=== PATIENT | male | born 1945 | race Caucasian/White ===

== ENCOUNTER → 2016-11-06 | Outpatient (CLI) | payer OTHER | LOC: FIMAGING 14:46 | PROVIDERS: ATTEND Family Medicine | DX: R91.1 Solitary pulmonary nodule (principal); I25.10 Atherosclerotic heart disease of native coronary artery without angina pectoris; K86.89 Other specified diseases of pancreas; N28.1 Cyst of kidney, acquired ==

== ENCOUNTER → 2017-05-23 | Outpatient (CLI) | payer OTHER | LOC: FIMAGING 12:43 | PROVIDERS: ATTEND Family Medicine | DX: R91.8 Other nonspecific abnormal finding of lung field (principal) ==

== ENCOUNTER 2018-01-14 19:24 | Inpatient (IN) | payer OTHER ==
--- NOTE | 2018-01-14 19:34 | EDPHY ---
HPI/HX/ROS/PE/MDM Narrative: CHIEF COMPLAINT: Syncope versus seizure HISTORY OF PRESENT ILLNESS: This patient is a 73 year old male with history of bladder cancer, diabetes, hypertension, and hyperlipidemia arriving via EMS following a syncopal episode this evening. He was eating dinner at a [facility] restaurant and his noted him start to tremble, and then his head drooped and he fell to the side. He did not fall from his chair or strike his head. He remained unconscious for about 2- 3 minutes. The patient denies any chest pain, shortness of breath, palpitations , or nausea prior to this event. He states he felt as if he could not hear well , and then remembers waking to EMS. He denies any confusion upon waking, and states he currently feels fine. About 2-3 weeks ago, the patient was hiking with his near [facility] and had an episode of lightheadedness lasting about 2 minutes. His states he was stumbling and having difficulty with his legs at that time as well. He denies fainting. He denies head trauma. He denies any speech or word-finding difficulties. However, since that time he has felt spacey and had memory difficulties. His states he has been dragging his right leg. They have followed up with his primary care physician and the patient is scheduled for MRI. Today, he had difficulty writing down elements of a phone conversation he had with his daughter. He and his are concerned these symptoms may be related to a TIA. The patient takes daily low dose aspirin. No fever, chills, chest pain, shortness of breath, palpitations, vomiting, diarrhea, urinary complaints, headache, lightheadedness. REVIEW OF SYSTEMS: Aside from elements discussed in the HPI, a comprehensive 10-point review of systems was reviewed and is negative. PAST MEDICAL HISTORY: Diabetes mellitus type II (metformin). Hyperlipidemia ( Lipitor). Hypertension (Losartan). Takes Zoloft. History of bladder cancer ( current immunotherapy). SOCIAL HISTORY: . at bedside. No alcohol use. PCP Dr. Pimentel. VITAL SIGNS: Reviewed by me GENERAL: Well-developed, well-nourished, no respiratory distress. Slightly slow to answer some questions and follow commands. HEENT: Atraumatic. Eyes: No icterus, no injection. EOMI, ELIAS. Mouth: moist mucous membranes. No erythema or lesions. Neck: supple with no adenopathy. LUNGS: Clear to auscultation bilaterally, no wheezes, rhonchi or rales. CARDIAC: Regular rate and rhythm, no rubs, murmurs or gallops. ABDOMEN: Soft, nontender, nondistended, bowel sounds normal. BACK: No CVA tenderness. EXTREMITIES: No trauma. No edema. Range of motion is normal throughout. NEURO: Alert and oriented x3, slow to follow commands. Upward pronatory drift in right arm. Right leg drift. Normal finger to nose and heel to juárez. SKIN: Pale. Warm and dry, no rash. PSYCHIATRIC: Normal mentation, no agitation. Portions of this note were transcribed by a medical office representative. I personally performed a history, physical exam, medical decision making, and confirmed accuracy of information the transcribed note. ED Course: 19:25 Met EMS at bedside. 73 y/o male presents following a syncopal episode earlier this evening. He is alert and oriented but slow to respond to commands. Some drift in right upper and lower extremities on exam. Plan for EKG, chest x-ray, CT head, labs including CBC, chemistries. 12-LEAD EKG: Please see the full report in [facility]. My interpretation: Sinus rhythm, RBBB. 20:[address] Cruz, radiologist. CT head shows large subdural hemorrhage vs fluid collection suspicious for dural metastasis, causing 11 mm of subfalcine rightward shift. Plan to consult with neurosurgery. 20:16 Reassessed patient. Discussed imaging results. 20:[address] Dailey, neurosurgeon. He accepts admission for subdural hemorrhage with shift, possible seizure vs syncope. 20:[address] Dailey, neurosurgeon. He will admit the patient to stepdown. Plan for additional laboratory studies including type and screen. Plan to consult with hospitalist service regarding this patient. Patient's course discussed with Dr. Solomon Peck. Hospitalist service will consult and follow. At the patient and 's request, I also discussed the presentation and findings with their daughter who is a primary care physician in [place]. MDM: Differential diagnosis of the patient's presenting complaint was considered including but not limited to vasovagal syncope, arrhythmia, intracranial mass, intracranial hemorrhage, CVA, TIA, dehydration. - Data Points Imaging Results: Imaging Impressions Chest X-Ray 01/14/18 19:43 Impression: 1. Mild bronchitis. 2. No focal pneumonia or pulmonary edema. Head CT 01/14/18 19:43 Impression: 1. Left frontoparietal large complex multiseptated thick wall subdural fluid collection suspicious for dural metastasis versus less likely subacute subdural hematoma. 2. Rightward subfalcine herniation, rightward midline shift 11 mm due to the large left frontoparietal complex subdural fluid collection, which measures up to 2.5 cm in thickness. 3. Recommend STAT Neurosurgery consult. Findings and recommendations discussed with Emergency Department Physician Backup Engineer, Natalee Mueller M.D., at 2015 hours, on January 14, 2018. Final report concurs with initial preliminary interpretation. Imaging: Discussed imaging studies w/ on call Radiologist, I viewed and interpreted images myself Laboratory Results: Laboratory Results 01/14/18 19:37 01/14/18 19:37 01/14/18 01/14/18 01/14/18 20:02 19:37 19:37 WBC 5.96 10^3/uL 10^3/uL (3.80-9.50) RBC 4.13 10^6/uL L 10^6/uL (4.40-6.38) Hgb 12.5 g/dL L g/dL (13.7-17.5) Hct 38.1 % L % (40.0-51.0) MCV 92.3 fL fL (81.5-99.8) MCH 30.3 pg pg (27.9-34.1) MCHC 32.8 g/dL g/dL (32.4-36.7) RDW 14.8 % % (11.5-15.2) Plt Count 224 10^3/uL 10^3/uL (150-400) MPV 11.1 fL fL (8.7-11.7) Neut % (Auto) 56.6 % % (39.3-74.2) Lymph % (Auto) 34.2 % % (15.0-45.0) [place] % (Auto) 6.2 % % (4.5-13.0) Eos % (Auto) 2.7 % % (0.6-7.6) Baso % (Auto) 0.3 % % (0.3-1.7) Nucleat RBC Rel Count 0.0 % % (0.0-0.2) Absolute Neuts (auto) 3.37 10^3/uL 10^3/uL (1.70-6.50) Absolute Lymphs (auto) 2.04 10^3/uL 10^3/uL (1.00-3.00) Absolute Monos (auto) 0.37 10^3/uL 10^3/uL (0.30-0.80) Absolute Eos (auto) 0.16 10^3/uL 10^3/uL (0.03-0.40) Absolute Basos (auto) 0.02 10^3/uL 10^3/uL (0.02-0.10) Absolute Nucleated RBC 0.00 10^3/uL 10^3/uL (0-0.01) Immature Gran % 0.0 % % (0.0-1.1) Immature Gran # 0.00 10^3/uL 10^3/uL (0.00-0.10) Sodium 143 mEq/L mEq/L (135-145) Potassium 4.7 mEq/L mEq/L (3.3-5.0) Chloride 106 mEq/L mEq/L (97-110) Carbon Dioxide 21 mEq/l L mEq/l (22-31) Anion Gap 16 mEq/L mEq/L (8-16) BUN 35 mg/dL H mg/dL (7-23) Creatinine 1.3 mg/dL mg/dL (0.7-1.3) Estimated GFR 54 Glucose 131 mg/dL H mg/dL (70-100) Calcium 10.0 mg/dL mg/dL (8.5-10.4) POC Troponin I 0.00 ng/mL ng/mL (0.00-0.08) Point of Care Test Results: Chemistry 01/14/18 20:02 POC Troponin I 0.00 ng/mL ng/mL (0.00-0.08) General Initial Vital Signs: Initial Vital Signs Temperature (C) 36.4 C 01/14/18 19:25 Heart Rate 69 01/14/18 19:25 Respiratory Rate 16 01/14/18 19:25 Blood Pressure 147/72 H 01/14/18 19:25 O2 Sat (%) 94 01/14/18 19:25 O2 Delivery Mode Room Air Allergies/Adverse Reactions: Penicillins Allergy (Verified 01/14/18 19:36) Home Medications: Medication Instructions Recorded Aspirin [Aspirin 81mg (*)] 81 mg PO DAILY@1200 01/14/18 Atorvastatin Calcium [Lipitor 20 20 mg PO HS 01/14/18 mg (*)] Ferrous Sulfate [Iron] 325 mg PO DAILY@19001/14/18 Herbals/Supplements -Info Only 1 ea PO DAILY 01/14/18 Insulin Detemir [Levemir Flextouch] 30 units SQ DAILY@189901/14/18 Losartan Potassium [Losartan 100 mg PO DAILY@1200 01/14/18 Potassium] Metformin HCl [Metformin 1000 mg] 1,000 mg PO BIDMEAL 01/14/18 Vitamin B Complex [Vitamin B 2 each PO DAILY 01/14/18 Complex (OTC)] Zolpidem Tartrate [Zolpidem 5 mg PO HS PRN 01/14/18 Tartrate] Departure - Departure Disposition: [facility] Inpatient Acute Clinical Impression: Subdural hemorrhage Syncope Qualifiers: Syncope type: unspecified Qualified Code(s): R55 - Syncope and collapse Condition: Fair Report Scribed for: Natalee Mueller Report Scribed by: Margaret Rocha Date of Report: 01/14/18 Time of Report: 20:16
--- NOTE | 2018-01-14 19:36 | CPEKG ---
Heart Rate: 66 RR Interval: 909 P-R Interval: 160 QRSD Interval: 132 QT Interval: 408 QTC Interval: 428 P [place]: 56 QRS [place]: 45 T Wave [place]: 30 EKG Severity - ABNORMAL ECG - EKG Impression: SINUS RHYTHM EKG Impression: RIGHT BUNDLE BRANCH BLOCK Electronically Signed By: Natalee Mueller 14-Jan-2018 21:37:47
[2018-01-14 20:05] LABS: PLATELET COUNT 224 10^3/uL (150-400)
--- NOTE | 2018-01-14 20:47 | PDCONSULT ---
Meter Supervisor Note: Imaging reviewed. Full consult to follow in AM. 73M with left chronic subdural with some shift and clumsiness of the right hand. No sign of acute blood. will admit to SDU for observation overnight will need crani for evacuation tomorrow NPO after midnight may need to consider embolization of MMA given extensive inflammatory membranes medicine consult for managment of other issues Hugh Dailey MD
[2018-01-14] MEDS ORDERED: POLYETHYLENE GLYCOL 3350 17 GM PKT PO PRN (20:55)
[2018-01-14] MEDS ORDERED: LACTULOSE 20 GM/30 ML UDCUP PO PRN (20:55)
[2018-01-14] MEDS ORDERED: BISACODYL 10 MG SUPP PR PRN (20:55)
[2018-01-14] MEDS ORDERED: MAGNESIUM HYDROXIDE 30 ML UDCUP PO PRN (20:55)
[2018-01-14] MEDS ORDERED: ONDANSETRON DISINTEGRATING 4 MG TAB PO PRN (20:55)
[2018-01-14] MEDS ORDERED: ACETAMINOPHEN 650 MG SUPP PR PRN (20:55)
[2018-01-14] MEDS ORDERED: ONDANSETRON 4 MG/2 ML VIAL IVP PRN (20:55)
[2018-01-14] MEDS ORDERED: NS 1,000 ML IV SCH (21:00)
[2018-01-14] MEDS ORDERED: D50W 25 GM/50 ML SYR IVP PRN (22:20)
[2018-01-14] MEDS: levETIRAcetam 750 MG in NS (SYRINGE) 50 ML IV SCH (22:29)
[2018-01-14] MEDS: SENNOSIDES/DOCUSATE SODIUM TAB PO SCH (22:30)
--- NOTE | 2018-01-14 22:57 | PDHOSCONS ---
History and Physical - Chief Complaint SDH - History of Present Illness 73 yo M w/ HTN, DM, and bladder CA p/w vague complaints of R-sided weakness over the last few weeks. Patient also describes some difficulty writing with his R hand. He denies fall or head trauma any time in the recent past. CT in the ED revealed left frontoparietal subdural fluid collection. Patient is being admitted for neurosurgical management of this. Neurosurgery service requested hospital medicine assistance with medical management. Patient has diabetes and has good control with metformin and insulin detemir 30 u qHS. He takes losartan for blood pressure even though he states this is mostly for his diabetes. History Information - Allergies/Home Medication List Allergies/Adverse Reactions: Penicillins Allergy (Verified 01/14/18 19:36) Home Medications: Aspirin [Aspirin 81mg (*)] 81 mg PO DAILY@1200 01/14/18 [Last Taken Unknown] Atorvastatin Calcium [Lipitor 20 mg (*)] 20 mg PO HS 01/14/18 [Last Taken ] Ferrous Sulfate [Iron] 325 mg PO DAILY@1900 01/14/18 [Last Taken 01/13/18] Herbals/Supplements -Info Only 1 ea PO DAILY 01/14/18 [Last Taken Unknown] Insulin Detemir [Levemir Flextouch] 30 units SQ DAILY@1900 01/14/18 [Last Taken 01/13/18] Losartan Potassium [Losartan Potassium] 100 mg PO DAILY@1200 01/14/18 [Last Taken 01/14/18] Metformin HCl [Metformin 1000 mg] 1,000 mg PO BIDMEAL 01/14/18 [Last Taken 01/14 08:00] Vitamin B Complex [Vitamin B Complex (OTC)] 2 each PO DAILY 01/14/18 [Last Taken 01/14/18 08:00] Zolpidem Tartrate [Zolpidem Tartrate] 5 mg PO HS PRN 01/14/18 [Last Taken ] I have personally reviewed and updated: family history, medical history - Past Medical History cancer (Bladder), diabetes type 2, hypertension - Surgical History Additional surgical history: Several bladder tumor removal procedures - Family History Positive for: cancer (Breast cancer in mother) - Social History Smoking Status: Former smoker Review of Systems Review of Systems: ROS: 10pt was reviewed & negative except for what was stated in HPI & below Physical Exam Physical Exam: Temp Pulse Resp BP Pulse Ox 36.4 C 72 16 119/69 94 01/14/18 19:25 01/14/18 21:15 01/14/18 21:15 01/14/18 21:15 01/14/18 21:15 Constitutional: no apparent distress, not in pain Eyes: PERRL, EOMI Ears, Nose, Mouth, Throat: moist mucous membranes, no oral mucosal ulcers Cardiovascular: regular rate and rhythym, no murmur, rub, or gallop Respiratory: no respiratory distress, no rales or rhonchi Gastrointestinal: normoactive bowel sounds, soft, non-tender abdomen Skin: warm, normal color Musculoskeletal: full muscle strength, no muscle tenderness Neurologic: AAOx3, sensation intact bilaterally, CN II-XII Intact, No weakness, No numbness, No facial droop Psychiatric: interacting appropriately, not anxious Lab Data & Imaging Review 01/14/18 19:37 01/14/18 19:37 WBC 5.96 10^3/uL (3.80-9.50) 01/14/18 19:37 RBC 4.13 10^6/uL (4.40-6.38) L 01/14/18 19:37 Hgb 12.5 g/dL (13.7-17.5) L 01/14/18 19:37 Hct 38.1 % (40.0-51.0) L 01/14/18 19:37 MCV 92.3 fL (81.5-99.8) 01/14/18 19:37 MCH 30.3 pg (27.9-34.1) 01/14/18 19:37 MCHC 32.8 g/dL (32.4-36.7) 01/14/18 19:37 RDW 14.8 % (11.5-15.2) 01/14/18 19:37 Plt Count 224 10^3/uL (150-400) 01/14/18 19:37 MPV 11.1 fL (8.7-11.7) 01/14/18 19:37 Neut % (Auto) 56.6 % (39.3-74.2) 01/14/18 19:37 Lymph % (Auto) 34.2 % (15.0-45.0) 01/14/18 19:37 Ritchie % (Auto) 6.2 % (4.5-13.0) 01/14/18 19:37 Eos % (Auto) 2.7 % (0.6-7.6) 01/14/18 19:37 Baso % (Auto) 0.3 % (0.3-1.7) 01/14/18 19:37 Nucleat RBC Rel Count 0.0 % (0.0-0.2) 01/14/18 19:37 Absolute Neuts (auto) 3.37 10^3/uL (1.70-6.50) 01/14/18 19:37 Absolute Lymphs (auto) 2.04 10^3/uL (1.00-3.00) 01/14/18 19:37 Absolute Monos (auto) 0.37 10^3/uL (0.30-0.80) 01/14/18 19:37 Absolute Eos (auto) 0.16 10^3/uL (0.03-0.40) 01/14/18 19:37 Absolute Basos (auto) 0.02 10^3/uL (0.02-0.10) 01/14/18 19:37 Absolute Nucleated RBC 0.00 10^3/uL (0-0.01) 01/14/18 19:37 Immature Gran % 0.0 % (0.0-1.1) 01/14/18 19:37 Immature Gran # 0.00 10^3/uL (0.00-0.10) 01/14/18 19:37 Sodium 143 mEq/L (135-145) 01/14/18 19:37 Potassium 4.7 mEq/L (3.3-5.0) 01/14/18 19:37 Chloride 106 mEq/L (97-110) 01/14/18 19:37 Carbon Dioxide 21 mEq/l (22-31) L 01/14/18 19:37 Anion Gap 16 mEq/L (8-16) 01/14/18 19:37 BUN 35 mg/dL (7-23) H 01/14/18 19:37 Creatinine 1.3 mg/dL (0.7-1.3) 01/14/18 19:37 Estimated GFR 54 01/14/18 19:37 Glucose 131 mg/dL (70-100) H 01/14/18 19:37 POC Glucose 212 mg/dL (70-100) H 01/14/18 21:46 Calcium 10.0 mg/dL (8.5-10.4) 01/14/18 19:37 POC Troponin I 0.00 ng/mL (0.00-0.08) 01/14/18 20:02 Patient ABO/Rh O POSITIVE 01/14/18 20:30 Antibody Screen NEGATIVE 01/14/18 20:30 Imaging Review: Imaging Impressions Chest X-Ray 01/14/18 19:43 Impression: 1. Mild bronchitis. 2. No focal pneumonia or pulmonary edema. Head CT 01/14/18 19:43 Impression: 1. Left frontoparietal large complex multiseptated thick wall subdural fluid collection suspicious for dural metastasis versus less likely subacute subdural hematoma. 2. Rightward subfalcine herniation, rightward midline shift 11 mm due to the large left frontoparietal complex subdural fluid collection, which measures up to 2.5 cm in thickness. 3. Recommend STAT Neurosurgery consult. Findings and recommendations discussed with Emergency Department Physician Um Rn, Natalee Mueller M.D., at 2015 hours, on January 14, 2018. Final report concurs with initial preliminary interpretation. Visualized and Interpreted Chest x-ray results: Yes Chest X-Ray results: no infiltrate Visualized and Interpreted EKG results: Yes EKG Interpretation: Positive for: normal sinsus rhythm, other (RBBB) Assessment & Plan Assessment: 73 yo M w/ HTN and DM presents with subtle R sided weakness and syncope, found to have L SDH. Plan: 1. Subdural fluid collection - Left frontoparietal large complex multiseptated thick wall subdural fluid collection suspicious for dural metastasis versus less likely subacute subdural hematoma. - Management per neurosurgery primary - Would recommend Oncology consult to consider metastatic etiology noting coexisting bladder cancer - Maintain NPO 2. T2DM - Controlled at home with metformin + insulin detemir 30 u qHS. - Standard protocol SSI + 1/2 dose insulin glargine (15 u qHS) while NPO - ACHS BG checks, hypoglycemia orders in - Resume home dosing once regular diet resumes -Continue home ARB and statin 3. Bladder CA - Treated with various prior surgical procedures and now on BCG, per patient. Unclear if this is causative for suspected dural metastasis seen on admission CT. - Oncology consult Diet - NPO Code - Full Thank you for this consult, the hospital medicine service will follow along with you. Please do not hesitate to call with any questions.
[2018-01-15] MEDS: INSULIN GLARGINE 100 UNITS/ML UNIT SC SCH ×2 (00:14→21:38)
[2018-01-15 06:37] LABS: INR 1.03 (0.83-1.16); PROTIME(PATIENT) 13.7 SEC (12.0-15.0)
[2018-01-15] MEDS ORDERED: VANCOMYCIN HCL/NORMAL SALINE 250 ML IV ONE (07:06)
--- NOTE | 2018-01-15 08:37 | GHP ---
[f rep st] HISTORY AND PHYSICAL DATE OF ADMISSION: 01/14/2018 CHIEF COMPLAINT: Syncope and poor coordination. HISTORY OF PRESENT ILLNESS: The patient is a 73-year-old male patient, who has a past medical history significant for bladder cancer, diabetes, hypertension, and hyperlipidemia. He presented to the emergency room yesterday evening following a syncopal episode at a [employer] restaurant. Per report, the patient' s noted him trembling and then his head dropped, and he fell to the side. He did not fall from the chair or strike his head. He was unconscious for about 2-3 minutes. He was seen in the emergency room and underwent further evaluation. Imaging demonstrated a large, chronic, left-sided, subdural fluid collection, presumably a hematoma. The neurosurgery service was subsequently consulted and the patient was admitted to our service. On examination this morning, the patient is resting in bed. His is at the bedside. He states that he does not notice any weakness in his right hand unless he is trying to use it. For example, he is not able to clearly write out his signature. The patient and his have been seen by Dr. Dailey this morning and they understand patient's condition and the recommendation for surgery. REVIEW OF SYSTEMS: Please see above-mentioned in the HPI. No nausea, vomiting , numbness, or tingling. He has right-sided weakness. Denies any weakness in his face. He states that he feels he is thinking clearly. PAST MEDICAL HISTORY: Diabetes, type 2, hyperlipidemia, hypertension, history of bladder cancer. SOCIAL HISTORY: The patient is . His is at the bedside. No alcohol use. FAMILY HISTORY: The patient has a daughter, who is living. She is a physician. He states his mother passed of breast cancer and the patient's father of old age. He also had an uncle who at a young age, but the cause is unknown. PHYSICAL EXAMINATION: VITAL SIGNS: Blood pressure 133/56, heart rate 61, O2 saturation is 96% on 2 L of oxygen via nasal cannula, respirations 14. GENERAL: This is a well-developed, well-nourished male patient. He is in no acute distress. Cranial nerves 2 [id number] are grossly intact. The patient's eyes are PERRL. His extraocular movements are intact. His sclerae are anicteric. He has intact sensation over his face. His facial movements are symmetric without a facial droop noted. His speech is fluent. He has intact hearing to light finger scratch and conversation bilaterally. He has a symmetric shoulder shrug bilaterally. Motor examination of the bilateral upper extremities is 5/5 for deltoid, triceps, biceps, and hand social services manager. Motor examination of the bilateral lower extremities is 5/5 for hip flexion, flexion and extension at knee and plantar and dorsiflexion with the exception of dorsiflexion on the right side of approximately 4+ out of 5. He has intact sensation throughout the normal dermatomal distribution of his body. LABORATORY: 1. White blood cells 5.96, red blood cells 4.13, hemoglobin 12.5, hematocrit 38.1, RDW 14.8, platelet count 224. 2. Coagulation: PT is 13.7, INR is 1.03, APTT 22.6. 3. Chemistry: Sodium 143, potassium 4.7, chloride 106, carbon dioxide 21, anion gap 16, BUN 35, creatinine 1.3, GFR 54, glucose 131, calcium 10. Troponin 0.00. 4. Urinalysis: Ketones are trace, urobilinogen is 2, negative leukocyte esterase, 1-3 white blood cells. Urine glucose 1+. IMAGING STUDIES: Electrocardiogram: Sinus rhythm with a right bundle branch block. Chest x-ray: Mild bronchitis. No focal pneumonia or pulmonary edema. CT of the head, without contrast: Left frontoparietal, large complex, multiseptated, thick-wall, subdural fluid collection suspicious for dural metastasis versus less likely a subacute subdural hematoma. Rightward subfalcine herniation, rightward midline shift, 11 mm, due to the large, left, frontoparietal, complex, subdural fluid collection, which measures up to 2.5 cm in thickness. Recommend stat Neurosurgery consult. IMPRESSION: This is a 73-year-old male patient, status post syncopal event with a large, left-sided, subdural fluid collection. PLAN: I have seen and examined the patient this morning and Dr. Dailey has seen the patient this morning as well. Dr. 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 We have recommended surgical intervention. We have a left-sided craniotomy for evacuation of these blood products. Prior to surgery , we will have the patient undergo an MRI of the brain, with and without contrast, to evaluate this area better. I have discussed the risks and benefits of surgical intervention with the patient and his , and they have elected to move forward with surgery. Consent forms were left at the bedside to be completed. All questions were answered, and the patient and his were in agreement and understanding of the plan. I reviewed the plan in detail with Dr. Dailey. We appreciate the hospitalist service assisting in medical management for this patient. Vancomycin is on-call for the patient's procedure today and he will remain NPO. Please contact the neurosurgery service with any additional questions or concerns. NEUROSURGERY STAFF: I have seen and evaluated the patient and I agree with the above note by the PA. Hugh Dailey MD /[id number]/MODL MTDD
[2018-01-15] MEDS ORDERED: GADOBUTROL 10 ML VIAL IVP ONE (08:42)
[2018-01-15] MEDS: INSULIN LISPRO 100 UNIT/ML SC SCH ×3 (08:45→17:51)
[2018-01-15] MEDS: SENNOSIDES/DOCUSATE SODIUM TAB PO SCH ×2 (09:36→21:37)
[2018-01-15] MEDS: levETIRAcetam 750 MG in NS (SYRINGE) 50 ML IV SCH ×2 (09:37→22:55)
--- NOTE | 2018-01-15 09:49 | ASMTCMCOM ---
CM Note CM Note Notes: 73yr old male admitted for SDH. He has a Hx of Bladder CA, DM, HTN, HLD, and he was a smoker. Patient to have a L sided crani to evacuate hematoma and biopsy for possible mets. Patient lives with his . Therapies to eval for discharge needs. CM to follow. Date Signed: 01/15/2018 09:48 AM Electronically Signed By:Lenore Galvez LCSW
--- NOTE | 2018-01-15 10:57 | HOSPPROG ---
Hospitalist Progress Note Assessment/Plan: 73 yo M w/ HTN, DM, and bladder CA p/w vague complaints of R-sided weakness over the last few weeks. Patient also describes some difficulty writing with his R hand. He denies fall or head trauma any time in the recent past. CT in the ED revealed left frontoparietal subdural fluid collection. Patient is being admitted for neurosurgical management of this. Neurosurgery service requested hospital medicine assistance with medical management. # DM2, good control with metformin and insulin, on determir, 30 units qHS. * Hold metformin * insulin SS, til back on PO * transition back to determir when eating normally. # HTN: Good pressure control with losartan. * Monitor in hospital # Hx Bladder cancer in immunotherapy. MRI Pending prior to craniotomy. # DVT proph: SCD, add lovenox when OK per NS standpoint. Subjective: Pt new to me and chart reviewed. doing well, denies pain Objective: Vital Signs Temp Pulse Resp BP Pulse Ox 36.4 C 64 12 103/58 L 96 01/15/18 07:45 01/15/18 07:45 01/15/18 07:45 01/15/18 07:45 01/15/18 07:45 01/14/18 01/15/18 01/16/18 05:59 05:59 05:59 Intake Total 514 Output Total 350 Balance 164 PT 13.7 SEC (12.0-15.0) 01/15/18 05:30 INR 1.03 (0.83-1.16) 01/15/18 05:30 - Physical Exam Constitutional: no apparent distress, not in pain Eyes: PERRL, anicteric sclera Ears, Nose, Mouth, Throat: moist mucous membranes, hearing normal Cardiovascular: regular rate and rhythym Respiratory: no respiratory distress, clear to auscultation Gastrointestinal: normoactive bowel sounds Genitourinary: no bladder fullness Skin: warm Musculoskeletal: full muscle strength Neurologic: AAOx3 Psychiatric: interacting appropriately ICD10 Worksheet Patient Problems: Problems Problem Status Onset Subdural hemorrhage Acute Syncope Acute
--- NOTE | 2018-01-15 11:35 | PDANEPAE ---
ANE History of Present Illness here for crani for SDH ANE Past Medical History - Cardiovascular History Hx Hypertension: Yes Hx Arrhythmias: No Hx Chest Pain: No Hx Coronary Artery / Peripheral Vascular Disease: No Hx CHF / Valvular Disease: No Hx Palpitations: No - Pulmonary History Hx COPD: No Hx Asthma/Reactive Airway Disease: No Hx Recent Upper Respiratory Infection: No Hx Oxygen in Use at Home: No Hx Sleep Apnea: No Sleep Apnea Screening Result - Last Documented: Positive - Endocrine History Hx Diabetes: Yes Hypothyroid: No Hyperthyroid: No Obesity: no - Renal History Hx Renal Disorders: No - Liver History Hx Hepatic Disorders: No ANE Review of Systems Review of systems is: negative Review of Systems: - Exercise capacity Exercise capacity: >=4 METS ANE Patient History - Allergies Allergies/Adverse Reactions: Penicillins Allergy (Verified 01/14/18 19:36) - Home Medications Home medications: home medication list seen and reviewed Home Medications: Aspirin [Aspirin 81mg (*)] 81 mg PO DAILY@1200 01/14/18 [Last Taken Unknown] Atorvastatin Calcium [Lipitor 20 mg (*)] 20 mg PO HS 01/14/18 [Last Taken ] Ferrous Sulfate [Iron] 325 mg PO DAILY@1900 01/14/18 [Last Taken 01/13/18] Herbals/Supplements -Info Only 1 ea PO DAILY 01/14/18 [Last Taken Unknown] Insulin Detemir [Levemir Flextouch] 30 units SQ DAILY@1900 01/14/18 [Last Taken 01/13/18] Losartan Potassium [Losartan Potassium] 100 mg PO DAILY@1200 01/14/18 [Last Taken 01/14/18] Metformin HCl [Metformin 1000 mg] 1,000 mg PO BIDMEAL 01/14/18 [Last Taken 01/14 08:00] Vitamin B Complex [Vitamin B Complex (OTC)] 2 each PO DAILY 01/14/18 [Last Taken 01/14/18 08:00] Zolpidem Tartrate [Zolpidem Tartrate] 5 mg PO HS PRN 01/14/18 [Last Taken ] - NPO status NPO Status: no food or drink >8 hours NPO Since - Liquids (Date): 01/15/18 NPO Since - Liquids (Time): 00:00 NPO Since - Solids (Date): 01/15/18 NPO Since - Solids (Time): 00:00 - Smoking Hx Smoking Status: Former smoker ANE Labs/Vital Signs - Labs Result Diagrams: 01/14/18 19:37 01/14/18 19:37 - Vital Signs Vital Signs: reviewed preoperatively; see RN documention for details Blood Pressure: 107/58 Heart Rate: 56 Respiratory Rate: 14 O2 Sat (%): 97 Height: 175.26 cm Weight: 63.503 kg ANE Physical Exam - Airway Neck exam: FROM Mallampati Score: Class 1 - Pulmonary Pulmonary: no respiratory distress - Cardiovascular Cardiovascular: regular rate and rhythym - ASA Status ASA Status: II ANE Anesthesia Plan Anesthesia Plan: general endotracheal anesthesia
[2018-01-15] MEDS ORDERED: LR 1,000 ML IV ONE (11:37)
[2018-01-15] MEDS ORDERED: LABETALOL HCL 5 MG/ML 20 ML MDV IVP PRN (11:43)
[2018-01-15] MEDS ORDERED: LR 500 ML IV PRN (11:43)
[2018-01-15] MEDS ORDERED: fentaNYL 100 MCG/2 ML INJ IVP PRN (11:43)
[2018-01-15] MEDS ORDERED: DEXAMETHASONE 4 MG/ML VIAL IVP PRN (11:43)
[2018-01-15] MEDS ORDERED: NALOXONE HCL 0.4 MG/ML INJ IVP PRN (11:43)
[2018-01-15] MEDS ORDERED: ALBUTEROL 3 ML DEYVIAL IH PRN (11:43)
[2018-01-15] MEDS ORDERED: ONDANSETRON 4 MG/2 ML VIAL IVP PRN (11:43)
[2018-01-15] MEDS ORDERED: THROMBIN (BOVINE) 5,000 UNIT VIAL TP ONE (12:15)
[2018-01-15] MEDS ORDERED: BACITRACIN ZINC 14.2 GM OINTTUBE TP ONE (12:15)
[2018-01-15] MEDS ORDERED: LIDOCAINE 1% 300 MG/30 ML SDV ONE (12:15)
[2018-01-15] MEDS ORDERED: CHLORHEXIDINE GLUC HIBICLENS 118 ML BTL TP ONE (12:15)
[2018-01-15] MEDS ORDERED: MANNITOL 20% 100 GM/500 ML BAG IV ONE (12:15)
[2018-01-15] MEDS ORDERED: SURGIFLO MATRIX KIT WITH THROMBIN 8 ML TP ONE (12:15)
[2018-01-15] MEDS ORDERED: AVITENE POWDER 1 GM JAR TP ONE (12:16)
[2018-01-15] MEDS ORDERED: GENTAMICIN SULFATE 80 MG/2 ML VIAL ONE (12:16)
[2018-01-15] MEDS ORDERED: EPINEPHrine 1 MG/ML INJ ONE (12:16)
[2018-01-15] MEDS ORDERED: PROPOFOL 200 MG/20 ML VIAL ONE ×2 (12:37→12:45)
[2018-01-15] MEDS ORDERED: fentaNYL 100 MCG/2 ML INJ ONE ×2 (12:43→14:03)
[2018-01-15] MEDS ORDERED: HYDROCODONE/APAP 10/325 TAB PO PRN (13:27)
[2018-01-15] MEDS ORDERED: VANCOMYCIN 1.5 GM in D5W 250 ML IV SCH (13:30)
[2018-01-15] MEDS ORDERED: NS W/ 20 KCl/L 1,000 ML IV SCH (13:30)
[2018-01-15] MEDS ORDERED: ROCURONIUM 50 MG/5 ML VIAL ONE (13:35)
[2018-01-15] MEDS ORDERED: PHENYLEPHRINE HCL 100 MCG/ML SYR ONE (13:35)
[2018-01-15] MEDS ORDERED: ONDANSETRON 4 MG/2 ML VIAL ONE (13:35)
[2018-01-15] MEDS ORDERED: DEXAMETHASONE 4 MG/ML VIAL ONE (13:35)
[2018-01-15] MEDS ORDERED: NEOSTIGMINE METHYLSULFATE 3 MG/3 ML SYR ONE (14:00)
[2018-01-15] MEDS ORDERED: GLYCOPYRROLATE 0.2 MG/1 ML VIAL ONE ×2 (14:00)
--- NOTE | 2018-01-15 14:18 | POSTOPPROG ---
Post Op Note Date of Operation: 01/15/18 Surgeon: Hugh Dailey Dynamometer Tester: none Anesthesiologist: Mike Anesthesia: GET(General Endotracheal) Pre-op Diagnosis: left chronic subdural hematoma Post-op Diagnosis: same Indication: same Procedure: left frontal crani for evacuation of subdural hematoma Findings: chronic subdural hematoma with inflammatory membranes Inf/Abcess present in the surg proc area at time of surgery?: No EBL: Minimal Complications: none Drains: Fantasma Mac (subdural space)
[2018-01-15] MEDS: LOSARTAN POTASSIUM 50 MG TAB PO SCH (15:18)
--- NOTE | 2018-01-15 15:24 | GOP ---
[f rep st] OPERATIVE REPORT DATE OF OPERATION: 01/15/2018 SURGEON: Hugh Dailey MD NEUROSURGEON: Hugh Dailey MD FURRIER APPRENTICE: None. ANESTHESIA: General endotracheal. PREOPERATIVE DIAGNOSIS: Left chronic subdural hematoma measuring 2.5 cm in its greatest thickness with about 11 mm of [id number] midline shift. POSTOPERATIVE DIAGNOSIS: PROCEDURE PERFORMED: 1. Left frontal craniotomy. 2. Evacuation of chronic subdural hematoma. 3. Placement of subdural drain. FINDINGS: subdural hematoma (chronic) SPECIMENS: Subdural fluid for cytology and subdural membranes for permanent pathology. ESTIMATED BLOOD LOSS: 50 cc. INDICATIONS: The patient is a 73-year-old man who presents with some right- sided hand clumsiness and a bit of confusion. It is possible that he had a seizure yesterday. He was seen in the ER where a CT scan of the head was performed showing what appeared to be a large chronic subdural hematoma measuring 2.5 cm in greatest thickness with extensive inflammatory membranes within the cavity. There is 11 mm of [id number] shift. He was brought electively today for craniotomy for evacuation. Of note, he does have bladder cancer and the possibility of dural base metastasis could not be ruled out. DESCRIPTION OF PROCEDURE: After informed consent was obtained from the patient , the patient was brought to the operating room, was placed in supine position on the operating table. A formal time-out was performed, identifying the patient by name, medical record number, and date of . Preoperative antibiotics were given. Endotracheal tube was placed and general endotracheal anesthesia was smoothly induced. The patient's head was turned slightly toward the right side on a horseshoe headrest and a linear incision was marked over the left frontal region. A small strip of hair was clipped, and the head was prepped and draped in the normal sterile fashion. 10 cc of 0.25% Marcaine with epinephrine was infiltrated in the skin for hemostasis. The skin incision was made using a 10 blade. The subcutaneous tissues were dissected using monopolar electrocautery. The upper portion of the temporalis muscle was opened slightly exposing a roughly 3.5 x 3.5 cm round area. A single hank hole was placed posteriorly and the dura was stripped as best possible from beneath. The craniotome was then used to turn a 3.5 x 3.5 cm craniotomy flap, but given the poor quality dura, the dura was opened with the bony opening and a large amount of subdural fluid was expressed under pressure. The bone flap was then removed, and the edges of the dura were inspected and coagulated. Large inflammatory membranes were seen in the subdural space, and initially, the more peripheral membranes were opened. There was a large amount of subdural fluid of different ages in this space, and this was carefully irrigated and suctioned away. As we removed this fluid, the membranes were coagulated using bipolar electrocautery. There was a large thick rind of membrane, which was deep in the area of the arachnoid, and this was opened and widely fenestrated and coagulated using bipolar electrocautery. At this point, the wound was completely dry with no sign of any bleeding. The wound was copiously irrigated using sterile saline irrigation. At this point, a 10-Slovenian JAMIE drain was placed in the subdural space and tunneled out sterilely. The dura was tacked back to the edges of the bone using 4 Nurolon and some Gelfoam was placed over the dural opening. The craniotomy flap was plated back in place using Synthes titanium plates and screws. Again, the wound was copiously irrigated using bacitracin irrigation. The galea was closed using interrupted 2-0 Vicryl, and the skin was closed using a running 4-0 Monocryl. The drain was connected to a sterile drainage system. Patient was then awakened in the operating room and was transferred to the PACU in stable condition. There were no operative complications. I was scrubbed present for the entire procedure. All sponge and needle counts were correct at the end of case. DRAIN: Subdural JAMIE. FLUIDS/URINE OUTPUT: Per the anesthesia record. /[id number]/MODL MTDD
--- NOTE | 2018-01-15 17:05 | PDMN ---
Medical Necessity Medical necessity: Patient meets inpatient criteria per PA and physician notes and [facility] [place] [id number] Cran[place]omy for Traumatic Brain Injury or Intracerebral Hemorrhage - 5 days postop - (syncopal episode vs seizure, likely chronic SDH with midline shift vs dural metastasis on CT, craniotomy for evacuation of large chronic SDH and placement of subdural drain.)
--- NOTE | 2018-01-15 17:15 | POSTANESTH ---
Post Anesthetic Evaluation Cardiovascular Status: Normal, Stable Respiratory Status: Normal, Stable Level of Consciousness/Mental Status: Mildly Sleepy, Arousable Pain Control: Adequate, Prn Tx Ordered Nausea/Vomiting Control: Adequate, Prn Tx Ordered Complications Possibly Related to Anesthesia: None Noted
[2018-01-15] MEDS: ACETAMINOPHEN 325 MG TAB PO PRN (17:51)
[2018-01-15] MEDS: FERROUS SULFATE 325 MG TAB PO SCH (17:52)
[2018-01-15] MEDS: ATORVASTATIN CALCIUM 20 MG TAB PO SCH (21:37)
[2018-01-16] MEDS: ACETAMINOPHEN 325 MG TAB PO PRN ×4 (04:38→22:55)
[2018-01-16 06:13] LABS: PLATELET COUNT 182 10^3/uL (150-400)
--- NOTE | 2018-01-16 07:11 | NEUSURGPN ---
Date of Surgery: 01/15/18 Post Op Day: 1 Assessment/Plan: Assessment: 73 yo male that is s/p craniotomy for evacuation of SDH POD #1 Plan: -s/p craniotomy: Pt doing better this am -RUE stronger -PT/OT/ST -post op CT head shows improvement of subdural collection -JAMIE in place and working well -will add TXA 650 BID -continue with ICU and drain -warning signs given -call with any questions or concerns -pt understands and agrees Subjective: Awake and alert. NAD. Eating/drinking and voiding. No f/c/n/v/d. No neck/ chest/abd or gu complaints. Ambulating well. Objective: AAO x 3, PERRLA/EOMI no droop CN 2-12 grossly intact +lt touch 5/5 BLE = 5/5 BUE with exception of right bi/tri and WE at 5-/[address] Neuro Check Frequency: per routine Urinary Catheter in Place: No - Physician Discussed Patient with : Ashlie Neurosurgery Physical Exam - Vitals, I&O, Labs I and O 01/15/18 01/16/18 01/17/18 05:59 05:59 05:59 Intake Total 514 2658 Output Total 350 845 Balance 164 1813 Weight 63.503 kg 64 kg Intake: Oral (ml) 750 IV Intake (ml) 950 IV Infused (ml) 514 958 Ns 1,000 ml @ 75 mls/hr 514 958 IV CONT CAM Rx#: [id number] Output: Urine (ml) 350 600 Toilet 600 Urinal 350 Estimated Blood Loss (ml) 30 JAMIE Drain Output (ml) 215 #1 Left Scalp Fantasma 215 Mac Other: Intake Quantity Yes Sufficient Number of Voids Incontinence 1 Toilet 4 Number of Stools Incontinence 0 Vital Signs Temp Pulse Resp BP Pulse Ox 36.0 C 68 16 122/68 H 98 01/15/18 20:00 01/16/18 06:00 01/16/18 06:00 01/16/18 06:00 01/16/18 06:00 Laboratory Results 01/16/18 06:00 01/16/18 06:00 ICD10 Worksheet Patient Problems: Problems Problem Status Onset Subdural hemorrhage Acute Syncope Acute
[2018-01-16] MEDS: SENNOSIDES/DOCUSATE SODIUM TAB PO SCH ×2 (08:34→21:06)
[2018-01-16] MEDS: TRANEXAMIC ACID 650 MG TAB PO SCH ×2 (08:34→21:06)
[2018-01-16] MEDS: INSULIN LISPRO 100 UNIT/ML SC SCH ×2 (08:34→13:30)
[2018-01-16] MEDS: levETIRAcetam 500 MG TAB PO SCH ×2 (08:34→21:04)
[2018-01-16] MEDS: LOSARTAN POTASSIUM 50 MG TAB PO SCH (12:34)
--- NOTE | 2018-01-16 15:07 | HOSPPROG ---
Hospitalist Progress Note Assessment/Plan: DIAGNOSES: # subdural hematomas with significant subfalcine herniation # right-sided weakness, resolving nicely # type 2 diabetes mellitus * Fasting morning sugars are in ideal range at this time with current long- acting insulin * Evening sugars a bit high postprandial; I am not at this time in favor of using sliding scale insulin due to higher risk of hypoglycemia and his high risk of neurologic complications of any hypoglycemia; at this point could resume his metformin which will probably work well for postprandial sugars and not cause hypoglycemia # history of hypertension constantly very well controlled here Unclear what led to this subdural bleed in this patient as there is no recall injury, however he does recall an episode of severe headache neck pain nausea vomiting and rigors after 1 of his bladder cancer treatments about 2 months ago PLANS: * continue postop care guided by Neurosurgery * Monitor blood pressures closely and treat any hypertension aggressively at this time * Will stop sliding scale insulin at this time resume his metformin and continue the current long-acting insulin dose; main goal is to avoid hypoglycemia while maintaining reasonable blood sugars such that we do not compromise wound healing * The physical occupational therapy, increase activity as tolerated without increasing blood pressure or risking fall This patient seen by me today on hospitals rounds as well as multidisciplinary rounds Reviewed in detail with Dr. Dariusz Ferrari and with neurosurgical PA SUBJECTIVE: Mild headache much better than at admission No fever symptoms, no nausea, no respiratory symptoms OBJECTIVE Vitals reviewed: Blood pressures in great range no fevers or other are vital sign abnormalities Galley Worker, my review: Sinus Exam: alert oriented normal mentation overall Looks relaxed and comfortable skin warm dry color ok resps not labored lungs clear BSs heart regular abd soft nondistended nontender, bowel sounds present limbs warm, no edema iv site ok Laboratory data: Fasting sugars in good range in the mornings at 140s to 160s Evening postprandial sugars have been higher sometimes getting over 200 No low sugars as of yet Metabolic panel otherwise normal Slight decrease in hemoglobin further today I reviewed his CT scan images, and subdural hematomas noted appear likely subacute consistent with his symptoms Objective: Vital Signs Temp Pulse Resp BP Pulse Ox 36.0 C 67 12 128/67 H 100 01/15/18 20:00 01/16/18 14:00 01/16/18 14:00 01/16/18 14:00 01/16/18 14:00 Laboratory Results 01/16/18 06:00 01/16/18 06:00 01/15/18 01/16/18 01/17/18 06:59 06:59 06:59 Intake Total 514 8507 480 Output Total 350 845 860 Balance 164 1813 -380 PT 13.7 SEC (12.0-15.0) 01/15/18 05:30 INR 1.03 (0.83-1.16) 01/15/18 05:30 - Time Spent With Patient Time Spent with Patient: greater than 35 minutes Time Spent with Patient: Greater than 35 minutes spent on this patients care, greater than 50% of time spent counseling, educating, and coordinating care regarding the above mentioned plan. ICD10 Worksheet Patient Problems: Problems Problem Status Onset Subdural hemorrhage Acute Syncope Acute
[2018-01-16] MEDS: FERROUS SULFATE 325 MG TAB PO SCH (18:19)
[2018-01-16] MEDS: metFORMIN HCL 500 MG TAB PO SCH (18:19)
[2018-01-16] MEDS: ATORVASTATIN CALCIUM 20 MG TAB PO SCH (21:04)
[2018-01-16] MEDS: INSULIN GLARGINE 100 UNITS/ML UNIT SC SCH (21:06)
[2018-01-17] MEDS: ACETAMINOPHEN 325 MG TAB PO PRN ×3 (04:20→19:58)
--- NOTE | 2018-01-17 07:57 | NEUSURGPN ---
Assessment/Plan: Assessment: 73 yo male that is s/p craniotomy for evacuation of SDH POD #2 Plan: -s/p craniotomy: Pt with bladder incontinence and expressive aphasia/word finding difficulty this AM. Will get stat head CT -motor strength 5/5 BUE/BLE and equal -PT/OT/ST -JAMIE in place -On TXA 650 BID -continue with ICU and drain -call with any neuro changes, questions or concerns -D/w Dr Dailey Subjective: Pt resting in bedside chair, states he is really concerned after bladder incontinence this am Objective: Awake and alert VSS Oriented to place and time - unable to say "Mily" Face symmetrical Pupils equal Motor 5/5 BUE/BLE Follows all commands JPx1 Incision cdi Urinary Catheter in Place: No - Physician Discussed Patient with : Ashlie Neurosurgery Physical Exam - Vitals, I&O, Labs I and O 01/16/18 01/17/18 01/18/18 05:59 05:59 05:59 Intake Total 2658 850 Output Total 845 1980 Balance 1813 -1130 Weight 64 kg Intake: Oral (ml) 750 850 IV Intake (ml) 950 IV Infused (ml) 958 Ns 1,000 ml @ 75 mls/hr 958 IV CONT CAM Rx#: [id number] Output: Urine (ml) 600 1625 Incontinence 100 Toilet 600 Urinal 1525 Estimated Blood Loss (ml) 30 JAMIE Drain Output (ml) 215 355 #1 Left Scalp Fantasma 215 355 Mac Other: Intake Quantity Yes Sufficient Number of Voids Toilet 4 Urinal 3 Vital Signs Temp Pulse Resp BP Pulse Ox 36.1 C 77 27 H 110/60 100 01/16/18 19:51 01/17/18 06:00 01/17/18 06:00 01/17/18 06:00 01/17/18 06:00 Laboratory Results 01/16/18 06:00 01/16/18 06:00 ICD10 Worksheet Patient Problems: Problems Problem Status Onset Subdural hemorrhage Acute Syncope Acute
[2018-01-17] MEDS: levETIRAcetam 500 MG TAB PO SCH ×2 (08:46→20:01)
[2018-01-17] MEDS: SENNOSIDES/DOCUSATE SODIUM TAB PO SCH ×2 (08:47→19:59)
[2018-01-17] MEDS: TRANEXAMIC ACID 650 MG TAB PO SCH ×2 (08:47→20:01)
[2018-01-17] MEDS: metFORMIN HCL 500 MG TAB PO SCH ×2 (08:47→18:39)
--- NOTE | 2018-01-17 10:00 | GCON ---
[f rep st] CONSULTATION BUDGET COUNSELOR CONSULTATION REASON FOR ADMISSION: Subdural hematoma. HISTORY: The patient is a very pleasant 73-year-old white male with extensive past medical history, including bladder cancer, diabetes mellitus, and hypertension. Over last several weeks, he has notic ed increasing right-sided weakness. He was eventually brought to the emergency room, was found to mares ve a subdural hematoma. Was evaluated by Neurosurgery. He was taken to the operating room. A drain was placed. In discussion with the patient, he states overall he feels quite well. His headache is somewhat improved. He is still having some problems with word finding. There was no chest pain, pl euritic-type chest pain or angina equivalent. He denies any fever or night sweats. Overall, he is d oing quite well. REVIEW OF SYSTEMS: Ten-point review of systems is performed and is negative, with the exception of w hat is listed in the HPI. PAST MEDICAL HISTORY: Significant for hypertension, diabetes, bladder cancer. ALLERGIES: Penicillin. MEDICATIONS: Medications at home include aspirin, atorvastatin, ferrous sulfate, Levemir, losartan, metformin, vitamin B complex, zolpidem. FAMILY HISTORY: Noncontributory. SOCIAL HISTORY: Previous heavy smoker, none for many years. No significant alcohol use. He is rik ied, has excellent family support. PHYSICAL EXAM: VITAL SIGNS: Blood pressure is 122/70, pulse 68, respiration rate 18, temperature 36 .5, oxygen saturation 96% on 2 L. GENERAL: He is a thin, but well-developed 73-year-old white male who is resting comfortably in no acute distress. HEENT: Eyes PERRL, EOMI. Throat shows no erythema or tonsillar hypertrophy. NECK: Supple. There is no cervical adenopathy. HEART: Regular rate and rhythm, without murmurs, rubs, or gallops. LUNGS: Clear to auscultation. No wheezing or rhonchi. ABDOMEN: Soft, nontender. Bowel sounds are present in all 4 quadrants. EXTREMITIES: No clubbing, cyanosis, or edema. LABORATORY DATA: White count 6.6, hemoglobin 11, hematocrit 33. Platelet count is 182. Sodium 142, potassium 4.9, chloride 112. CO2 is 20, BUN 21, creatinine 1. Glucose is 168. Urinalysis is negat bianca. CT scan of the head dated 01/16 shows acute hemorrhage with mass effect, with evidence of acute postoperative bleeding. Drain is in place. IMPRESSION: 1. Chronic subdural hematoma. 2. Status post left craniotomy. 3. Possible new acute hemorrhage. 4. Diabetes. Blood sugar is well controlled. 5. Hypertension. RECOMMENDATION: 1. Continue aggressive blood sugar control. 2. Adequate blood pressure control. 3. Neurosurgery is on the case. 4. DVT and PE prophylaxis, holding anticoagulation for now. 5. Stress ulcer prophylaxis. 6. PT and OT. /[id number]/MODL
--- NOTE | 2018-01-17 12:04 | ASMTCMCOM ---
CM Note CM Note Notes: Patient is doing well. He is surrounded by family most of the time. PT/DISCOUNT CLERK currently recommending outpatient therapies. If patient will be homebound, we can certainly order home therapies closer to discharge. Case Managment will follow. Date Signed: 01/17/2018 12:04 PM Electronically Signed By:Ruba Edmondson RN
[2018-01-17] MEDS: LOSARTAN POTASSIUM 50 MG TAB PO SCH (12:25)
[2018-01-17] MEDS: FERROUS SULFATE 325 MG TAB PO SCH (18:39)
[2018-01-17] MEDS: ATORVASTATIN CALCIUM 20 MG TAB PO SCH (20:00)
[2018-01-17] MEDS: INSULIN GLARGINE 100 UNITS/ML UNIT SC SCH (20:05)
[2018-01-17] MEDS: MELATONIN 3 MG TAB PO PRN (20:58)
[2018-01-18] MEDS: ACETAMINOPHEN 325 MG TAB PO PRN ×2 (02:18→16:37)
[2018-01-18] MEDS: SENNOSIDES/DOCUSATE SODIUM TAB PO SCH ×2 (08:25→21:39)
[2018-01-18] MEDS: metFORMIN HCL 500 MG TAB PO SCH ×2 (08:26→19:51)
[2018-01-18] MEDS: TRANEXAMIC ACID 650 MG TAB PO SCH ×2 (08:26→21:39)
[2018-01-18] MEDS: levETIRAcetam 500 MG TAB PO SCH ×2 (08:26→21:38)
--- NOTE | 2018-01-18 08:51 | SOAPPROG ---
SOAP Progress Note Assessment/Plan: Assessment/Plan: Assessment: 73 yo male that is s/p craniotomy for evacuation of SDH POD #3 Plan: -SD JAMIE removed this AM per my discussion with Dr. Dailey -PT/OT/ST -On TXA 650 BID -continue with ICU -call with any neuro changes, questions or concerns -D/w Dr Dailey Subjective: Pt awake alert and comfortable in bed. No new issues. Denies worsening symptoms Objective: Awake and alert VSS A+Ox4 No facial droop, no pronator drift Face symmetrical Pupils equal Motor 5/5 BUE/BLE Follows all commands Incision cdi Objective: Vital Signs Temp Pulse Resp BP Pulse Ox 36.6 C 71 16 120/65 96 01/17/18 20:00 01/18/18 04:00 01/18/18 04:00 01/18/18 04:00 01/18/18 04:00 Laboratory Results 01/16/18 06:00 01/16/18 06:00 01/17/18 01/18/18 01/19/18 05:59 05:59 05:59 Intake Total 850 400 Output Total 1980 70 Balance -1130 330 PT 13.7 SEC (12.0-15.0) 01/15/18 05:30 INR 1.03 (0.83-1.16) 01/15/18 05:30 ICD10 Worksheet Patient Problems: Problems Problem Status Onset Subdural hemorrhage Acute Syncope Acute
--- NOTE | 2018-01-18 12:46 | HOSPPROG ---
Hospitalist Progress Note Assessment/Plan: DIAGNOSES: # subdural hematomas with significant subfalcine herniation; status post craniotomy with evacuation and subdural drain * Complicated by some pneumocephalus but doing quite well overall # right-sided weakness and word-finding difficulties, resolving nicely # type 2 # history of hypertension constantly very well controlled here diabetes mellitus * Fasting morning sugars are good range overall * Postprandial sugars still intermittently high Unclear what led to this subdural bleed in this patient as there is no recall injury, however he does recall an episode of severe headache neck pain nausea vomiting and rigors after 1 of his bladder cancer treatments about 2 months ago PLANS: * continue postop care guided by Neurosurgery * Monitor blood pressures closely and treat any hypertension aggressively at this time * Will add some scheduled pre meal short-acting insulin along with his metformin , continue same dose of long-acting insulin * physical and occupational therapy, increase activity as tolerated without increasing blood pressure or risking fall This patient seen by me today on hospitals rounds as well as multidisciplinary rounds Reviewed in detail with Dr. Soria SUBJECTIVE: Today feels well and notices improvement from last night initially morning where he had some worsening word-finding difficulty JAMIE drain has now been removed without difficulty No fever respiratory or cardiac symptoms OBJECTIVE Vitals reviewed: Blood pressures in desired range vitals otherwise stable Analog Ic Design Architect, my review: Sinus Exam: alert oriented normal mentation overall Looks relaxed and comfortable skin warm dry color ok resps not labored lungs clear BSs heart regular abd soft nondistended nontender, bowel sounds present limbs warm, no edema iv site ok Laboratory data: Fasting sugars in good range in the mornings at 140s to 160s Evening postprandial sugars have been higher sometimes getting over 200 No low sugars as of yet Objective: Vital Signs Temp Pulse Resp BP Pulse Ox 36.6 C 72 18 130/70 H 97 01/18/18 08:00 01/18/18 08:00 01/18/18 08:00 01/18/18 08:00 01/18/18 08:00 Laboratory Results 01/16/18 06:00 01/16/18 06:00 01/17/18 01/18/18 01/19/18 06:59 06:59 06:59 Intake Total 850 400 Output Total 1980 70 Balance -1130 330 PT 13.7 SEC (12.0-15.0) 01/15/18 05:30 INR 1.03 (0.83-1.16) 01/15/18 05:30 ICD10 Worksheet Patient Problems: Problems Problem Status Onset Subdural hemorrhage Acute Syncope Acute
[2018-01-18] MEDS: INSULIN LISPRO 100 UNIT/ML SC SCH ×2 (13:24→19:50)
[2018-01-18] MEDS: LOSARTAN POTASSIUM 50 MG TAB PO SCH (13:39)
--- NOTE | 2018-01-18 17:45 | PDINTPN ---
Auto Brake Mechanic Progress Note Assessment/Plan: 73 m admitted with BARTH and found to have chronic SDH and underwent craniotomy for evacuation. He also has DM which has been mostly controlled * SDH- improving but still requires neuro checks. JAMIE dc'd * DM- BS slightly elevated despite metformin and lantus. SSI added * HTN- controlled Subjective: feels well Objective: Vital Signs Temp Pulse Resp BP Pulse Ox 36.5 C 86 18 113/53 L 98 01/18/18 16:00 01/18/18 16:00 01/18/18 16:00 01/18/18 16:00 01/18/18 16:00 Laboratory Results 01/16/18 06:00 01/16/18 06:00 01/17/18 01/18/18 01/19/18 05:59 05:59 05:59 Intake Total 850 400 550 Output Total 1980 70 440 Balance -1130 330 110 PT 13.7 SEC (12.0-15.0) 01/15/18 05:30 INR 1.03 (0.83-1.16) 01/15/18 05:30 Physical Exam - Physical Exam General Appearance: alert, no apparent distress EENT: PERRL/EOMI Neck: supple Respiratory: lungs clear, normal breath sounds, No respiratory distress, No accessory muscle use Cardiac/Chest: regular rate, rhythm, No edema Abdomen: non-tender, soft, No distended Skin: normal color, warm/dry, No cyanosis Lymphatic: no adenopathy Extremities: No pedal edema Neuro/Psych: alert, normal mood/affect, oriented x 3 ICD10 Worksheet Patient Problems: Problems Problem Status Onset Subdural hemorrhage Acute Syncope Acute
[2018-01-18] MEDS: FERROUS SULFATE 325 MG TAB PO SCH (19:51)
[2018-01-18] MEDS: ATORVASTATIN CALCIUM 20 MG TAB PO SCH (21:37)
[2018-01-18] MEDS: INSULIN GLARGINE 100 UNITS/ML UNIT SC SCH (21:46)
[2018-01-18] MEDS: MELATONIN 3 MG TAB PO PRN (21:47)
[2018-01-19] MEDS: ACETAMINOPHEN 325 MG TAB PO PRN (06:33)
--- NOTE | 2018-01-19 06:54 | SOAPPROG ---
SOAP Progress Note Assessment/Plan: Assessment: POD#4 s/p left frontal crani for SDH, drain removed yesterday. Doing well Plan: - doing well, wants to d/c home today - continue keppra for 2 weeks, TXA probably for 6 weeks - followup CT scan in 6 weeks - wash hair daily - minimal pain - f/u in clinic in 2 weeks for wound check 01/19/18 06:51 Subjective: doing well, no complaints this morning Objective: Vital Signs Temp Pulse Resp BP Pulse Ox 36.4 C 73 13 118/68 98 01/19/18 00:00 01/19/18 04:00 01/19/18 04:00 01/19/18 04:00 01/19/18 04:00 Laboratory Results 01/16/18 06:00 01/16/18 06:00 01/18/18 01/19/18 01/20/18 05:59 05:59 05:59 Intake Total 400 700 Output Total 70 440 Balance 330 260 PT 13.7 SEC (12.0-15.0) 01/15/18 05:30 INR 1.03 (0.83-1.16) 01/15/18 05:30 AAOx3, speech clear and fluent, CNII-XII grossly normal Full strength and sensation, no drift wound c/d/i - Pending Discharge Pending Discharge Within 24 Hours: Yes Pending Discharge Date: 01/20/18 Pending Discharge Time: 11:00 ICD10 Worksheet Patient Problems: Problems Problem Status Onset Subdural hemorrhage Acute Syncope Acute
[2018-01-19] MEDS: SENNOSIDES/DOCUSATE SODIUM TAB PO SCH (08:39)
[2018-01-19] MEDS: TRANEXAMIC ACID 650 MG TAB PO SCH (08:39)
[2018-01-19] MEDS: levETIRAcetam 500 MG TAB PO SCH (08:39)
[2018-01-19 08:50] VITALS: BP 118/56
[2018-01-19] MEDS: INSULIN LISPRO 100 UNIT/ML SC SCH (09:09)
[2018-01-19] MEDS: metFORMIN HCL 500 MG TAB PO SCH (09:14)
--- NOTE | 2018-01-19 09:21 | HOSPPROG ---
Hospitalist Progress Note Assessment/Plan: DIAGNOSES: # subdural hematomas with significant subfalcine herniation; status post craniotomy with evacuation and subdural drain # right-sided weakness and word-finding difficulties, resolving nicely # type 2 DM # history of hypertension constantly very well controlled here feels well, no new sxs, no BARTH vitals all stable language/speech nl minimal weakness At this time he is stable for DC home In terms of Diabetes his sugars have mostly been at "inpatient goal" here with a few higher post prandials At home he is on higher dose of levemir and metformen, states his am sugars are in 80-90 range most days but he often wakes during night with symptoms of low sugars. He has post prandials at home as high as 190s. As he goes home we will need to see how sugars go with resumption of usual Levemir, usual diet, increasing activity. However I emphasized to him the importance of avoiding low sugars first, then gradually lowering the highs. His overall goals can be somewhat modest given his age. Recommendations: Levemir decreased to 28 / day; follow closely for goal of AM sugars more like 100-130 with absence of night time lows follow for a week or two and decrease gradually over next month by 1-2 units per day until reach that goal Continue metformen Once at goal for the levemir, if post prandials higher than 160 or so, can add premeal short acting or another newer med, he will discuss with Dr Espinoza Objective: Vital Signs Temp Pulse Resp BP Pulse Ox 36.4 C 80 20 118/56 L 96 01/19/18 00:00 01/19/18 08:30 01/19/18 08:30 01/19/18 08:30 01/19/18 08:30 Laboratory Results 01/16/18 06:00 01/16/18 06:00 01/18/18 01/19/18 01/20/18 06:59 06:59 06:59 Intake Total 400 700 Output Total 70 440 Balance 330 260 PT 13.7 SEC (12.0-15.0) 01/15/18 05:30 INR 1.03 (0.83-1.16) 01/15/18 05:30 - Time Spent With Patient Time Spent with Patient: greater than 25 minutes Time Spent with Patient: Greater than 25 minutes spent on this patients care, greater than 50% of time spent counseling, educating, and coordinating care regarding the above mentioned plan. ICD10 Worksheet Patient Problems: Problems Problem Status Onset Subdural hemorrhage Acute Syncope Acute
--- NOTE | 2018-01-19 10:23 | ASMTLACE ---
LACE Length of stay for Answers: 4-6 days current admission Acuity / Level of Answers: Yes Care: Did the patient have an inpatient admission? Comorbidities - select Answers: Any tumor (including all that apply lymphoma or leukemia) Diabetes (uncontrolled or controlled) Other Notes: Fall-SDH # of Emergency department Answers: 1-2 visits in the last 6 months Score: 12 Date Signed: 01/19/2018 10:22 AM Electronically Signed By:Jaelyn Gonzalez RN
--- NOTE | 2018-01-23 14:57 | SOAPPROG ---
FORM[facility] Patient Name: SELENA KU Rpt#: [id number] Unit Number: [id number] Attending/ER Physician: Hugh Dailey MD Patient Type: DIS IN Adm Date/Source: 01/14/18 EMR Discharge Date: 01/19/18 Primary Carrier: [employer]IC[employer] SOAP NOTE SOAP Progress Note Assessment/Plan: Assessment: 73 yo male that is s/p craniotomy for evacuation of SDH POD #3 Plan: -SD JAMIE removed this AM per my discussion with Dr. Dailey -PT/OT/ST -On TXA 650 BID -continue with ICU -call with any neuro changes, questions or concerns -D/w Dr Dailey Subjective: Pt awake alert and comfortable in bed. No new issues. Denies worsening symptoms Objective: Awake and alert VSS A+Ox4 No facial droop, no pronator drift Face symmetrical Pupils equal Motor 5/5 BUE/BLE Follows all commands Incision cdi 01/22/18 07:49 Objective: Vital Signs Temp Pulse Resp BP Pulse Ox 36.6 C 71 16 120/65 96 01/17/18 20:00 01/18/18 04:00 01/18/18 04:00 01/18/18 04:00 01/18/18 04:00 Laboratory Results 01/16/18 06:00 01/16/18 06:00 01/17/18 01/18/18 01/19/18 05:59 05:59 05:59 Intake Total 850 400 Output Total 1980 70 Balance -1130 330 PT 13.7 SEC (12.0-15.0) 01/15/18 05:30 INR 1.03 (0.83-1.16) 01/15/18 05:30 ICD10 Worksheet Patient Problems: Problems Problem Status Onset Subdural hemorrhage Acute Syncope Acute *This report may have been compiled using a voice recognition system, and might contain typographical errors and blanks.* Gaston HICKMAN 01/22/18 0750 <Electronically signed by Gaston HICKMAN> 5 T: DIMA 01/18/18845 CC:
== END 2018-01-19 09:51 | disposition home or self-care (01) | DRG 25 ==
LOC: EDUNIT# → F2N 21:57
PROVIDERS: ADMIT Neurological Surgery; ATTEND Neurological Surgery
PROC: 00C40ZZ Extirpation of Matter from Intracranial Subdural Space, Open Approach (ICD-10-PCS; principal; 2018-01-15 12:30)
DX: I62.03 Nontraumatic chronic subdural hemorrhage (principal); G93.5 Compression of brain; E11.9 Type 2 diabetes mellitus without complications; I10 Essential (primary) hypertension; C67.9 Malignant neoplasm of bladder, unspecified; Z79.84 Long term (current) use of oral hypoglycemic drugs
CPT/HCPCS: 84484-PO; 92523-GN; 97110-GP; 97112-GO; 97112-GP; 97116-GP; 97162-GP; 97165-GO; 97535-GO; A9585; C1713; G0515-GO; G8978-GP-CI; G8979-GP-CH; G8987-GO-CI; G8988-GO-CI; J0171; J1100; J1580; J1815; J1953; J2370; J2405; J2704; J2710; J3010; J3370

== ENCOUNTER 2018-01-22 18:40 | Emergency (ER) | payer OTHER ==
--- NOTE | 2018-01-22 21:09 | EDPHY ---
H & P Stated Complaint: HEADACHE, HX OF CHRONIC SDH, SURGERY 01/15 Time Seen by Provider: 01/22/18 18:40 HPI/ROS: CHIEF COMPLAINT: Confusion, word-finding difficulty HISTORY OF PRESENT ILLNESS: This patient is a 73 year old male with history of diabetes mellitus and recent diagnosis of chronic subdural hematoma. He was evaluated in this emergency department one week ago for syncope and neurologic deficits. His subdural hematoma was discovered at that time and he underwent surgery on Sunday. He was discharged Sunday, four days ago, and felt well at that time. Since arriving home, he has had intermittent confusion, word-finding difficulty, and fine motor deficits. He was evaluated by his primary care physician earlier today, and states he had a UA which was negative for UTI. He was prescribed lorazepam for difficulty sleeping, and took one 0.5mg dose prior to a nap this afternoon. His symptoms began after waking from his nap. He and his report that his BGL has been within normal limits. He denies any recent trauma. No fever, chest pain, shortness of breath, vomiting, diarrhea, or other associated symptoms. REVIEW OF SYSTEMS: A comprehensive 10 point review of systems is otherwise negative aside from elements mentioned in the history of present illness. - Personal History Current Tetanus/Diphtheria Vaccine: Yes Current Tetanus Diphtheria and Acellular Pertussis (TDAP): Yes - Medical/Surgical History PMH: Chronic subdural hematoma s/p surgery 01/15/18. Diabetes mellitus type 2. History of bladder cancer. Hyperlipidemia. Hypertension. Hx Asthma: No Hx Chronic Respiratory Disease: No Hx Diabetes: Yes Hx Cardiac Disease: No Hx Renal Disease: No Hx Cirrhosis: No Hx Alcoholism: No Hx HIV/AIDS: No Hx Splenectomy or Spleen Trauma: No Other PMH: DM II, TIA ?, bladder CA, HLD, HTN - Social History Smoking Status: Former smoker Additional Social History: . at bedside. Former smoker. - Physical Exam Exam: General Appearance: Alert, no distress Eyes: Pupils equal and round no pallor or injection ENT, Mouth: Mucous membranes moist Respiratory: There are no retractions, lungs are clear to auscultation Cardiovascular: Regular rate and rhythm Gastrointestinal: Abdomen is soft and non tender, no masses, bowel sounds normal Neurological: A&O, normal motor function, normal sensory exam, normal cranial nerves Skin: Warm and dry, no rashes Musculoskeletal: Neck is supple non tender Extremities: Symmetrical, full range of motion Psychiatric: Patient is oriented X 3, there is no agitation Constitutional: Initial Vital Signs Temperature (C) 36.7 C 01/22/18 18:40 Heart Rate 85 01/22/18 18:40 Respiratory Rate 16 01/22/18 18:40 Blood Pressure 103/69 01/22/18 18:40 O2 Sat (%) 95 01/22/18 18:40 O2 Delivery Mode Room Air Allergies/Adverse Reactions: Penicillins Allergy (Verified 01/14/18 19:36) Home Medications: Medication Instructions Recorded Atorvastatin Calcium [Lipitor 20 20 mg PO HS 01/14/18 mg (*)] Ferrous Sulfate [Iron] 325 mg PO DAILY@189901/14/18 Herbals/Supplements -Info Only 1 ea PO DAILY 01/14/18 Insulin Detemir [Levemir Flextouch] 30 units SQ DAILY@189901/14/18 Losartan Potassium 100 mg PO DAILY@1200 01/14/18 Metformin HCl [Metformin 1000 mg] 1,000 mg PO BIDMEAL 01/14/18 Vitamin B Complex [Vitamin B 2 each PO DAILY 01/14/18 Complex (OTC)] Zolpidem Tartrate 5 mg PO HS PRN 01/14/18 HYDROcodone/APAP 10/325 [[place] 1 - 2 tab PO Q6HRS PRN #50 tab 01/19/18 10/325 (*)] Insulin Lispro [HumaLOG LISPRO] 3 unit SC TIDMEAL 30 Days unit 01/19/18 Tranexamic Acid 650 mg PO BID 45 Days tab 01/19/18 levETIRAcetam [Keppra 500 mg (*)] 750 mg PO BID 14 Days tab 01/19/18 Medical Decision Making - Diagnostics Imaging Results: Noncontrast head CT scan without contrast: Images reviewed by myself and with neurosurgeon Dr. Patrick Urena, no interval change from prior CT studies. Chronic subdural hematoma noted Imaging: Discussed imaging studies w/ freight caller Radiologist ED Course/Re-evaluation: This 73 year male with history of chronic subdural hematoma s/p surgical intervention 01/15/18 presents following an episode of confusion, word-finding difficulty, and reported fine-motor deficits earlier today. Plan for CT head, labs including I-stat, chemistries. 19:27 I-stat, BMP normal. 20:[address] Urena, neurosurgeon. The patient's CT is stable and unchanged from his post-surgical CT. Dr. Urena recommends continued treatment with DX and Keppra. Reassessed patient. Discussed imaging results and Dr. Urena's recommendations. The patient is already taking TXA and Keppra. I advised him to continue these medications. The patient's symptoms may be a side effect of the lorazepam he took earlier today. Plan to discharge home in good condition. He will follow up with his neurosurgeon as scheduled. Return precautions discussed. He is comfortable with this plan. The patient is family have been instructed to return to the ED for any markedly worsening neurologic symptoms. The patient has had some intermittent problems with word-finding since his injury and surgery. He has been having some waxing waning symptoms since his discharge from the hospital. The patient Differential Diagnosis: Differential diagnosis considered includes stroke, TIA, medication side effect, urinary tract infection, metabolic abnormality Departure - Departure Disposition: Home, Routine, Self-Care Clinical Impression: Chronic subdural hematoma, Likely medication side effect Condition: Good Instructions: Subdural Hematoma (ED) Additional Instructions: 1. Follow up with your neurosurgeon as scheduled. 2. Continue your regular medications including Keppra and TXA 3. Return to the ED for markedly worsening neurologic symptoms, seizure or other concerns Referrals: Brenden Urena MD [Medical Doctor] - As per Instructions Report Scribed for: Petey Paul Report Scribed by: Margaret Rocha Date of Report: 01/22/18 Time of Report: 21:09
[2018-01-22 22:27] VITALS: BP 133/76
== END 2018-01-22 21:35 | disposition home or self-care (01) ==
DX: I62.03 Nontraumatic chronic subdural hemorrhage (principal); I10 Essential (primary) hypertension; E11.9 Type 2 diabetes mellitus without complications; Z79.4 Long term (current) use of insulin; Z85.51 Personal history of malignant neoplasm of bladder; Z87.891 Personal history of nicotine dependence
CPT/HCPCS: 82435-PO; 82565-PO; 82947-PO; 84132-PO; 84295-PO; 84520-PO; 85014-PO

== ENCOUNTER 2018-01-23 09:50 | Observation (INO) | payer OTHER ==
[2018-01-23] MEDS ORDERED: NS 1,000 ML IV ONE (10:21)
--- NOTE | 2018-01-23 10:25 | EDPHY ---
H & P Stated Complaint: Hematoma surgery 1 week ago, cognitive changes this am Time Seen by Provider: 01/23/18 10:08 HPI/ROS: CHIEF COMPLAINT: Right-sided weakness HISTORY OF PRESENT ILLNESS: Patient is a 73-year-old man with a history of diabetes bladder cancer and recent admission for chronic subdural that was drained on the of this month. Prior to his surgery he presented with symptoms of confusion, slurred speech and weakness in his right arm and leg. He recovered well after the surgery and discharged on Sunday. He returned yesterday with some confusion and word-finding difficulties. Repeat CT and lab work was unremarkable. His ultimately thought that maybe it had something to do with the Ativan that he had taken. His symptoms resolved with time. This morning his symptoms seemed to return however. He again had some confusion and trouble with word finding but also today had some weakness in his right arm. He and is both state that it was worse than yesterday. No recent trauma. He has not taken any new medications today. He is taking Keppra and TXA. No nausea vomiting. No urinary complaints. No shortness of breath or cough or fever. His symptoms have now resolved. His thinks that it is due to the adrenaline barraza of having to come to the emergency department. REVIEW OF SYSTEMS: Constitutional: denies: chills, fever, recent illness, recent injury EENTM: denies: blurred vision, double vision, nose congestion Respiratory: denies: cough, shortness of breath Cardiac: denies: chest pain, irregular heart rate, lightheadedness, palpitations Gastrointestinal/Abdominal: denies: abdominal pain, diarrhea, nausea, vomiting, blood streaked stools Genitourinary: denies: dysuria, frequency, hematuria, pain Musculoskeletal: denies: joint pain, muscle pain Skin: denies: lesions, rash, jaundice, bruising Neurological: See HPI denies: headache, dizziness Hematologic/Lymphatic: denies: blood clots, easy bleeding, easy bruising Immunologic/allergic: denies: HIV/AIDS, transplant EXAM: GENERAL: Well-appearing, well-nourished and in no acute distress. HEAD: Atraumatic, normocephalic. EYES: Pupils equal round and reactive to light, extraocular movements intact, sclera anicteric, conjunctiva are normal. ENT: TMs normal, nares patent, oropharynx clear without exudates. Moist mucous membranes. NECK: Normal range of motion, supple without lymphadenopathy or JVD. LUNGS: Breath sounds clear to auscultation bilaterally and equal. No wheezes rales or rhonchi. HEART: Regular rate and rhythm without murmurs, rubs or gallops. ABDOMEN: Soft, nontender, normoactive bowel sounds. No guarding, no rebound. No masses appreciated. BACK: No CVA tenderness, no spinal tenderness, step-offs or deformities EXTREMITIES: Normal range of motion, no pitting or edema. No clubbing or cyanosis. NEUROLOGICAL: Cranial nerves II through XII grossly intact. No new dysarthria , some slight dysphagia states is baseline, normal gait. 5/5 strength, normal movement in all extremities, normal sensation, no pronator drift PSYCH: Normal mood, normal affect. SKIN: Warm, dry, normal turgor, no visible rashes or lesions. Source: Patient Exam Limitations: No limitations - Personal History Current Tetanus Diphtheria and Acellular Pertussis (TDAP): Yes - Medical/Surgical History Hx Asthma: No Hx Chronic Respiratory Disease: No Hx Diabetes: Yes Hx Cardiac Disease: No Hx Renal Disease: No Hx Cirrhosis: No Hx Alcoholism: No Hx HIV/AIDS: No Hx Splenectomy or Spleen Trauma: No Other PMH: DM II, TIA ?, bladder CA, HLD, HTN - Family History Significant Family History: No pertinent family hx - Social History Smoking Status: Former smoker Alcohol Use: Sober Constitutional: Initial Vital Signs Heart Rate 83 01/23/18 09:57 Respiratory Rate 16 01/23/18 09:57 Blood Pressure 109/84 H 01/23/18 09:57 O2 Sat (%) 97 01/23/18 09:57 O2 Delivery Mode Room Air Allergies/Adverse Reactions: Penicillins Allergy (Verified 01/23/18 12:10) Rash Home Medications: Medication Instructions Recorded Atorvastatin Calcium [Lipitor 20 20 mg PO HS 01/14/18 mg (*)] Ferrous Sulfate [Iron] 325 mg PO DAILY@189901/14/18 Herbals/Supplements -Info Only 1 ea PO DAILY 01/14/18 Insulin Detemir [Levemir Flextouch] 30 units SQ DAILY@189901/14/18 Losartan Potassium 100 mg PO DAILY@119901/14/18 Metformin HCl [Metformin 1000 mg] 1,000 mg PO BIDMEAL 01/14/18 Vitamin B Complex [Vitamin B 2 each PO DAILY 01/14/18 Complex (OTC)] Zolpidem Tartrate 5 mg PO HS PRN 01/14/18 Tranexamic Acid 650 mg PO BID 45 Days tab 01/19/18 levETIRAcetam [Keppra 500 mg (*)] 750 mg PO BID 14 Days tab 01/19/18 Acetaminophen [Tylenol ES 500 mg 1,000 mg PO Q8HRS 01/23/18 (*)] LORazepam [Ativan (*)] 0.5 mg PO TID PRN 01/23/18 Medical Decision Making - Diagnostics Imaging: Discussed imaging studies w/ call center director Radiologist ED Course/Re-evaluation: 11:45 a.m. I discussed the test results with the patient and family. They would like him admitted for observation. I agree that this is reasonable considering we do not have an explanation for his paroxysmal symptoms particularly the right arm weakness and slurred speech. He is asymptomatic now. I spoke with Dr. Karina HICKMAN who will accept for the Neurosurgery service. Differential Diagnosis: Partial list of the Differential diagnosis considered include but were not limited to; seizure, CVA, rebleed, infection and although unlikely based on the history and physical exam, I also considered migraine. I discussed these differential diagnoses and the plan with the patient as well as the usual and expected course. The patient understands that the diagnosis is provisional and that in medicine we are not always correct and that further workup is often warranted. Usual and customary warnings were given. All of the patient's questions were answered. The patient was instructed to return to the emergency department should the symptoms at all worsen or return, otherwise to followup with the physician as we discussed. - Data Points Laboratory Results: Laboratory Results 01/23/18 10:10 01/23/18 10:10 Medications Given: Acetaminophen (Tylenol) 650 mg PO Q4HRS PRN PRN Reason: Pain, Mild/Fever, Can Take PO Stop: 07/22/18 12:20 Last Admin: 01/24/18 05:57 Dose: 650 mg Atorvastatin Calcium (Lipitor) 20 mg PO HS [facility] Stop: 07/22/18 20:59 Last Admin: 01/23/18 21:23 Dose: 20 mg Dexamethasone (Decadron) 3 mg PO Q8 [facility] Stop: 07/23/18 08:29 Last Admin: 01/24/18 15:09 Dose: 3 mg Ferrous Sulfate (Ferrous Sulfate) 325 mg PO DAILY@1900 [facility] Stop: 07/22/18 18:59 Last Admin: 01/23/18 19:27 Dose: 325 mg Insulin Glargine (Lantus Syringe) 30 units SC DAILY@1900 [facility] Stop: 07/22/18 18:59 Last Admin: 01/23/18 18:36 Dose: 30 units Levetiracetam (Keppra) 1,000 mg PO BID [facility] Stop: 07/22/18 13:29 Last Admin: 01/24/18 09:30 Dose: 1,000 mg Losartan Potassium (Cozaar) 100 mg PO DAILY@1200 [facility] Stop: 07/23/18 11:59 Last Admin: 01/24/18 15:09 Dose: 100 mg Metformin HCl (Glucophage) 1,000 mg PO BIDMEAL [facility] Stop: 07/22/18 13:14 Last Admin: 01/24/18 09:30 Dose: 1,000 mg Tranexamic Acid (Tranexamic Acid) 650 mg PO BID [facility] Stop: 07/22/18 13:29 Last Admin: 01/24/18 09:29 Dose: 650 mg Discontinued Medications Acetaminophen (Tylenol) 1,000 mg PO EDNOW ONE Stop: 01/23/18 11:54 Last Admin: 01/23/18 12:06 Dose: 1,000 mg Sodium Chloride (Ns) 1,000 mls @ 500 mls/hr IV EDNOW ONE PRN Reason: Protocol Stop: 01/23/18 12:20 Last Admin: 01/23/18 10:58 Dose: 1,000 mls Levetiracetam (Keppra) 750 mg PO BID [facility] Stop: 07/22/18 13:29 Last Admin: 01/23/18 13:31 Dose: 750 mg Point of Care Test Results: Chemistry 01/23/18 10:36 POC Troponin I 0.00 ng/mL ng/mL (0.00-0.08) Departure - Departure Disposition: [facility] Acute Clinical Impression: Subdural hemorrhage Condition: Fair
[2018-01-23 10:28] LABS: PLATELET COUNT 249 10^3/uL (150-400)
[2018-01-23 10:38] LABS: INR 1.04 (0.83-1.16); PROTIME(PATIENT) 13.8 SEC (12.0-15.0)
[2018-01-23] MEDS ORDERED: ACETAMINOPHEN 500 MG TAB PO ONE (11:53)
[2018-01-23] MEDS ORDERED: ONDANSETRON DISINTEGRATING 4 MG TAB PO PRN (12:21)
[2018-01-23] MEDS ORDERED: HYDROCODONE/APAP 5/325 TAB PO PRN (12:21)
[2018-01-23] MEDS ORDERED: ONDANSETRON 4 MG/2 ML VIAL IVP PRN (12:21)
[2018-01-23] MEDS ORDERED: NS 1,000 ML IV SCH (12:30)
[2018-01-23] MEDS ORDERED: levETIRAcetam 500 MG TAB PO SCH (13:30)
[2018-01-23] MEDS: TRANEXAMIC ACID 650 MG TAB PO SCH ×2 (13:31→21:23)
[2018-01-23] MEDS: metFORMIN HCL 500 MG TAB PO SCH ×2 (16:15→17:02)
--- NOTE | 2018-01-23 16:40 | SOAPPROG ---
SOAP Progress Note Assessment/Plan: Assessment: cSDH possible seizure: consult neurology no infarct on MRI Agree with dictation by Kassandra Daly PAC Plan: 01/23/18 16:39 Objective: Vital Signs Temp Pulse Resp BP Pulse Ox 36.1 C 74 20 116/67 96 01/23/18 13:34 01/23/18 13:34 01/23/18 13:34 01/23/18 13:34 01/23/18 13:34 01/22/18 01/23/18 01/24/18 05:59 05:59 05:59 Intake Total 1000 Balance 1000 PT 13.8 SEC (12.0-15.0) 01/23/18 10:10 INR 1.04 (0.83-1.16) 01/23/18 10:10 ICD10 Worksheet Patient Problems: Problems Problem Status Onset Subdural hemorrhage Acute Syncope Acute
--- NOTE | 2018-01-23 18:13 | GHP ---
[f rep st] HISTORY AND PHYSICAL DATE OF ADMISSION: 01/23/2018 HPI: The patient is a 73-year-old male, who recently underwent surgery by Dr. Dailey on January 15, 2018, with a left craniotomy for evacuation of subdural hematoma. He recovered well from surgery and was discharged home on January 19. The patient returns to the emergency room today due to a few complaints. He has been having some cognitive difficulties, fine motor skill difficulties, and word-finding trou ble. He also had weakness of his right arm that lasted for approximately 3 hours today. The de scribed his arm as useless and kind of curled up. He has been taking Keppra at home at 750 mg p.o. t wice a day. He denies headache, nausea, vomiting. No other new symptoms. PAST MEDICAL HISTORY: Hypertension, diabetes, bladder cancer. PAST SURGICAL HISTORY: Bladder surgery, craniotomy for left subdural hematoma on January 15. FAMILY HISTORY: His mother had breast cancer. SOCIAL HISTORY: Admits to being a former smoker. ALLERGIES: Penicillin. CURRENT HOME MEDICATIONS: Keppra, Ambien, vitamin B complex, tranexamic acid, metformin, losartan, A tivan, insulin, multivitamin, ferrous sulfate, atorvastatin, acetaminophen. REVIEW OF SYSTEMS: Negative except for what is mentioned in the HPI. PHYSICAL EXAM: GENERAL: Patient was seen and examined in the emergency room/department. Awake, fransisco rt, oriented. Mood and affect are appropriate. VITAL SIGNS: Stable with blood pressure 124/74, hea rt rate 73, respirations 20, breathing 97% on room air, temperature 36.1. NEUROLOGIC: Extraocular m ovements are intact. Pupils equal, reactive. Facial expression is symmetrical. Tongue is midline w ith protrusion. Hearing is grossly intact. Speech is fluent without dysarthria. Muscle strength is well preserved in his upper and lower extremities at a 5/5. Sensation is intact to light touch. Ne gative pronator drift. SKIN: Incision is clean, dry, and intact. RESULTS: White count 4.74, hemoglobin 12.4, hematocrit 37.8. Sodium 142, potassium 5.1, carbon diox mayda 20, chloride 106, BUN 42, creatinine 1.2. Urinalysis: Negative. CT head: Stable with no signi ficant interval change in the variably aged acute/subacute chronic left subdural hematoma and residua l pneumocephalus, the size of the small right frontoparietal subdural hygroma or in the degree of mil d [id number] subfalcine shift. ASSESSMENT AND PLAN: In summary, the patient is a 73-year-old male with a recent history of left starch crab niotomy for evacuation of subdural hematoma on January 15, with now today complaints of cognitive changes , as well as weakness of his right upper extremity. His right upper extremity weakness has now resol deann with no neurological deficits on exam. Since his right upper extremity weakness was present for several hours, we recommend obtaining an MRI of the brain to rule out an acute infarct or transient i schemic attack. His head CT is stable without increase in size of the residual subdural hematoma. W e do not recommend intervening surgically. We will continue the patient on tranexamic acid. We will increase the patient's Keppra to 1000 mg p.o. b.i.d. in case what the patient experienced this morni ng was a seizure. We will also consult Neurology. The patient was seen and examined [facility] at 12:15 p.m. The patient was then seen by Dr. Collins at approximately 5 p.m. /[id number]/MODL
[2018-01-23] MEDS: INSULIN GLARGINE 100 UNITS/ML UNIT SC SCH (18:36)
[2018-01-23] MEDS: ACETAMINOPHEN 325 MG TAB PO PRN ×2 (19:27→23:35)
[2018-01-23] MEDS: FERROUS SULFATE 325 MG TAB PO SCH (19:27)
[2018-01-23] MEDS: ATORVASTATIN CALCIUM 20 MG TAB PO SCH (21:23)
[2018-01-23] MEDS: levETIRAcetam 500 MG TAB PO SCH (21:23)
[2018-01-24] MEDS: ACETAMINOPHEN 325 MG TAB PO PRN (05:57)
--- NOTE | 2018-01-24 07:58 | NEUSURGPN ---
Assessment/Plan: A: 73 yo M s/p left sided crani for SDH with [facility] on 01/15, readmitted for cognitive/speech difficulties, arm weakness. Now improving. P: -Neuro: exam improved today -CT head stable -MRI brain negative for infarct -Will add decadron 3mg Q8 hours per Dr Dailey -Keppra has been increased to 1000mg BID -Neurology consulted to see today -PT/OT/DIRECTOR OF DIGITAL TECHNOLOGY evals ordered -D/w Dr Dailey -Please call NS with any neuro changes or questions Subjective: Pt resting in bed, states his symptoms go up/down. States right side still feels weaker. Objective: AAOx3 NAD VSS MAEx4 Motor / BUE/BLE +LT Incision cdi Urinary Catheter in Place: No - Physician Discussed Patient with : Ashlie Neurosurgery Physical Exam - Vitals, I&O, Labs I and O 01/23/18 01/24/18 01/25/18 05:59 05:59 05:59 Intake Total 1450 Output Total 950 Balance 500 Weight 61 kg Intake: Oral (ml) 450 IV Infused (ml) 1000 Output: Urine (ml) 950 Urinal 950 Vital Signs Temp Pulse Resp BP Pulse Ox 37 C 74 16 141/79 H 97 01/24/18 04:00 01/24/18 04:00 01/24/18 04:00 01/24/18 04:00 01/24/18 04:00 ICD10 Worksheet Patient Problems: Problems Problem Status Onset Subdural hemorrhage Acute Syncope Acute
--- NOTE | 2018-01-24 08:57 | GCON ---
[f rep st] CONSULTATION NEUROLOGIC CONSULTATION REFERRING PHYSICIAN: Marleny Collins DO HISTORY: The patient is 73 years old, and I am asked to see him in neurologic consultation regarding episodes of impaired speech and some right-sided weakness in the setting of a known left subdural he matoma. This was originally detected January 15, and he had surgical drainage. He has been experienci ng some variable symptoms since discharge from the hospital last week and was in the emergency room t nasra in the last 48 hours and was admitted yesterday after again having these episodes. When he was seen yesterday, the reports obtained reveal that he can have trouble with verbal expression. The pat lashell tells me he would typically understand, but seem a little confused and have trouble with word fi nding. The speech can be a little slurred, and there seems to be a little bit of weakness in the rig ht arm and leg when it happens. He says he does not feel tingling or numbness. He does not describe pain. He had Ativan prescribed to try to help him with sleep. He had an episode the day before, an d the one yesterday seemed a little bit worse, which again prompted more concern about the source. H e is saying it might last a few minutes and then resolve back to his baseline. In any case, he had r epeat imaging yesterday showing relative stability of the left subdural hematoma with some chronic an d acute hemorrhage and some mild mass effect. MRI did not show evidence of stroke. Dr. Karina phamr eased his Keppra from 750 b.i.d. to 1000 b.i.d., and he has not had any episode since admission. FAMILY HISTORY: Unremarkable. PAST MEDICAL HISTORY: As outlined above. Also hypertension, diabetes, and bladder cancer. ALLERGIES: Penicillin. SOCIAL HISTORY: Smoking in the past. PHYSICAL EXAMINATION: VITAL SIGNS: Blood pressure 141/79, pulse of 74, respirations 16, temperature 37. GENERAL: He is well developed, no acute distress. EYES: Clear. NECK: Supple with no bruits or masses. CARDIAC: Regular rate and rhythm. He is alert and attentive with clear, fluent speech and normal cognition. He is fully oriented. Pupils are 3 mm and reactive. Extraocular movements ar e intact. Normal facial sensation and strength. MOTOR: Normal muscle bulk and tone, 5/5 strength. Sensation is preserved for temperature and light touch. Reflexes 1+ and symmetric. IMPRESSION: Total unit time of 50 minutes. The description is almost certainly consistent with foca l seizure phenomena creating aphasia and relative right-sided weakness associated with his subdural h ematoma causing cortical irritation. I agree with precisely what was done, increasing the Keppra, an d episodes have not recurred over the last 12 hours. I believe it is still safe for him to be discha rged from the hospital and continue to have appropriate outpatient followup. I gave him my contact i briana. /[id number]/MODL
[2018-01-24] MEDS ORDERED: Herbals/Supplements -Info Only PO SCH (09:00)
[2018-01-24] MEDS: TRANEXAMIC ACID 650 MG TAB PO SCH ×2 (09:29→19:49)
[2018-01-24] MEDS: levETIRAcetam 500 MG TAB PO SCH ×2 (09:30→19:50)
[2018-01-24] MEDS: metFORMIN HCL 500 MG TAB PO SCH ×2 (09:30→19:49)
[2018-01-24] MEDS: DEXAMETHASONE 1.5 MG TAB PO SCH ×3 (09:30→22:07)
[2018-01-24] MEDS ORDERED: LOSARTAN POTASSIUM 50 MG TAB PO SCH (12:00)
[2018-01-24] MEDS ORDERED: DEXAMETHASONE 4 MG TAB PO SCH (14:00)
--- NOTE | 2018-01-24 15:39 | ASMTCASEMG ---
Living Arrangements What is your living Answers: With Spouse arrangement? Who do you live with? Type Of Residence What kind of residence do Answers: House you live in? Discharge Plan Comments Coordination Status Comments Notes: Patient is a 73yo male who recently underwent surgery from Dr. Dailey for left craniotomy for evacuation of subdural hematoma. Patient presents with complaints of cognitive changes as well as weakness of his right upper extremity. PLUMBING AND HEATING MECHANIC/OT have been ordered. D/C plan TBD. CM will follow. Date Signed: 01/24/2018 03:38 PM Electronically Signed By:Lauryn Abdul LCSW
[2018-01-24] MEDS ORDERED: D50W 25 GM/50 ML SYR IVP PRN ×2 (18:50→18:52)
[2018-01-24] MEDS: FERROUS SULFATE 325 MG TAB PO SCH (19:49)
[2018-01-24] MEDS: INSULIN LISPRO 100 UNIT/ML SC SCH ×2 (19:50)
[2018-01-24] MEDS: ATORVASTATIN CALCIUM 20 MG TAB PO SCH (19:50)
[2018-01-24] MEDS: INSULIN GLARGINE 100 UNITS/ML UNIT SC SCH (19:51)
[2018-01-24] MEDS ORDERED: INSULIN REGULAR, HUMAN 100 UNIT/1 ML VIAL STANDARD SC SCH (21:00)
[2018-01-25] MEDS: DEXAMETHASONE 1.5 MG TAB PO SCH (07:04)
[2018-01-25 07:58] VITALS: BP 121/64
[2018-01-25] MEDS: TRANEXAMIC ACID 650 MG TAB PO SCH (08:18)
[2018-01-25] MEDS: metFORMIN HCL 500 MG TAB PO SCH (08:18)
[2018-01-25] MEDS: levETIRAcetam 500 MG TAB PO SCH (08:18)
[2018-01-25] MEDS: INSULIN LISPRO 100 UNIT/ML SC SCH (08:18)
--- NOTE | 2018-01-25 08:53 | NEUSURGPN ---
Assessment/Plan: A: 73 yo M s/p left sided crani for SDH with Ashlie on 01/15, readmitted for cognitive/speech difficulties, arm weakness. Now improving. P: -Neuro: exam improved today -CT head stable -MRI brain negative for infarct -Will add decadron 3mg Q8 hours per Dr Dailey - 1 week taper off this medication -Keppra has been increased to 1000mg BID -Neurology consulted- pt seen by Dr Pickett yesterday and pt will see him as outpatient. -PT/OT/NSH TEACHER evals ordered -D/w Dr Dailey -Please call NS with any neuro changes or questions -DC to home today Subjective: Pt resting in bed, feeling ok. Ready to go home. Objective: AAOx3 NAD VSS MAEx4 Incision cdi Slight right arm weakness appx 4+/5, otherwise 5/5 BUE/BLE Urinary Catheter in Place: No - Physician Discussed Patient with : Ash[facility] Neurosurgery Physical Exam - Vitals, I&O, Labs I and O 01/24/18 01/25/18 01/26/18 05:59 05:59 05:59 Intake Total 1450 200 Output Total 950 Balance 500 200 Weight 61 kg Intake: Oral (ml) 450 200 IV Infused (ml) 1000 Output: Urine (ml) 950 Urinal 950 Other: Number of Voids Urinal 2 Vital Signs Temp Pulse Resp BP Pulse Ox 36.4 C 64 16 121/64 H 96 01/25/18 07:57 01/25/18 07:57 01/25/18 07:57 01/25/18 07:57 01/25/18 07:57 ICD10 Worksheet Patient Problems: Problems Problem Status Onset Subdural hemorrhage Acute Syncope Acute
== END 2018-01-25 10:35 | disposition home or self-care (01) ==
LOC: F2N 13:07
PROVIDERS: ADMIT Neurological Surgery; ATTEND Neurological Surgery
DX: I62.03 Nontraumatic chronic subdural hemorrhage (principal); E11.9 Type 2 diabetes mellitus without complications; Z85.51 Personal history of malignant neoplasm of bladder; E78.5 Hyperlipidemia, unspecified; I10 Essential (primary) hypertension; Z87.891 Personal history of nicotine dependence; Z88.0 Allergy status to penicillin
CPT/HCPCS: 70450; 70551; 92523; 96360; 97161; 97166; 99285; G0378; G8978; G8979; G8980; J1815; 84484-PO

== ENCOUNTER 2018-09-10 13:56 | Inpatient (IN) | payer OTHER ==
[2018-09-10] MEDS ORDERED: SODIUM CHLORIDE IV ONE (14:43)
--- NOTE | 2018-09-10 14:43 | EDPHY ---
H & P Time Seen by Provider: 09/10/18 13:59 HPI/ROS: CHIEF COMPLAINT: Sent for shortness of breath and influenza HISTORY OF PRESENT ILLNESS: This 73 year old man was sent from Dr. Marcello Pimentel's office for admission for hypoxemia and influenza. He presents to the office today and had a positive influenza test and was hypoxemic. He has had 5 days of cough and fever with worsening shortness of breath. Associated with chills and malaise and not sputum. He had 1 day of diarrhea but no vomiting or abdominal pain. Symptoms moderate to severe, not better worse with anything. REVIEW OF SYSTEMS: Eye: no change in vision ENT: no sore throat Cardiac: no chest pain or syncope Pulmonary: HPI Abdomen: HPI Musculoskeletal: no back pain Skin: no rash Neuro: no headache Constitutional: HPI : no urinary symptoms A comprehensive 10 point review of systems is otherwise negative aside from elements mentioned in the history of present illness. PAST MEDICAL HISTORY: Includes diabetes using insulin, bladder cancer, hypertension, subdural Social history: Currently not smoking, penicillin allergy General Appearance: Alert and conversant, cooperative. Eyes: No scleral icterus. ENT, Mouth: Normal mucous membranes. Respiratory: Bilateral coarse rhonchi. Speaks in full sentences. No extra work of breathing. Triage saturation 82% on room air. Cardiovascular: Regular rate and rhythm. Tachycardic. Gastrointestinal: Abdomen is soft and non tender. Neurological: Alert, face symmetric, normal motor and sensory in extremities. Ambulatory. Skin: Warm and dry, no rashes. Musculoskeletal: No neck stiffness. Psychiatric: Not agitated. Emergency Department course/MDM: Patient presents with acute pulmonary infection in the context of recent influenza A positive testing. Plan for sepsis screening and IV fluids, broad- spectrum antibiotics and Tamiflu, hospitalist admission. IV Levaquin 750, 30 mL/kilos IV lactated Ringer's. Clinically hypovolemic but had elevated lactate, did not develop hypotension in the ED. Diagnosis made of septic shock with lactate greater than 4. Oxygen saturation in the 90s on nasal cannula. Smoking Status: Former smoker Constitutional: Initial Vital Signs Temperature (C) 37.5 C 09/10/18 14:03 Heart Rate 121 H 09/10/18 14:03 Respiratory Rate 16 09/10/18 14:03 Blood Pressure 137/87 H 09/10/18 14:03 O2 Sat (%) 82 L 09/10/18 14:03 O2 Delivery Mode Nasal Cannula O2 (L/minute) 2 Allergies/Adverse Reactions: Penicillins Allergy (Verified 09/10/18 14:01) Rash Home Medications: Medication Instructions Recorded Atorvastatin Calcium [Lipitor 20 20 mg PO HS 01/14/18 mg (*)] Ferrous Sulfate [Iron] 325 mg PO DAILY@1900 01/14/18 Insulin Detemir [Levemir Flextouch] 20 units SQ DAILY@1900 01/14/18 Losartan Potassium 100 mg PO DAILY@1200 01/14/18 Metformin HCl [Metformin 1000 mg] 1,000 mg PO BIDMEAL 01/14/18 Vitamin B Complex [Vitamin B 2 each PO DAILY 01/14/18 Complex (OTC)] Acetaminophen [Tylenol ES 500 mg 1,000 mg PO Q8HRS 01/23/18 (*)] Divalproex [Depakote] 500 mg PO BID 09/10/18 Medical Decision Making - Diagnostics Imaging Results: Imaging Impressions Chest X-Ray 09/10/18 14:43 Impression: Bibasilar lower lobe pneumonia, left greater than right. Chest x-ray personally interpreted shows bilateral lower lobe infiltrates. Imaging: I viewed and interpreted images myself Consult/Admit Bed Type: [place] [id number] Critical Care Time: Critical care time spent by me, Dr. Monteiro, exclusively with the care of this patient was 40 minutes, exclusive of PA or QUALITY CONTROL HEAD time and exclusive of separate procedures. The organ system at risk was pulmonary and infectious and I ordered supplemental oxygen, IV fluids and antibiotics, consultation with hospitalist and multiple diagnostics to stabilize the patient and prevent worsening of the patient's condition. - Data Points Laboratory Results: Laboratory Results 09/10/18 14:50 09/10/18 14:50 09/10/18 09/10/18 09/10/18 15:19 14:50 14:50 WBC RBC Hgb Hct MCV MCH MCHC RDW Plt Count MPV Neut % (Auto) Lymph % (Auto) [place] % (Auto) Eos % (Auto) Baso % (Auto) Nucleat RBC Rel Count Absolute Neuts (auto) Absolute Lymphs (auto) Absolute Monos (auto) Absolute Eos (auto) Absolute Basos (auto) Absolute Nucleated RBC Immature Gran % Seg Neutrophils % Band Neutrophils % Lymphocytes % Monocytes % Eosinophils % Basophils % Metamyelocytes % Myelocytes % Promyelocytes % Blast Cells % Immature Gran # Absolute Seg Neuts Absolute Band Neuts Absolute Lymphocytes Absolute Monocytes Absolute Eosinophils Absolute Basophils Absolute Metamyelocyte Absolute Myelocytes Absolute Promyelocytes Absolute Plasma Cells Nucleated RBCs Absolute Blast Cells Plasma Cells % Platelet Estimate Polychromasia PT 15.1 SEC H SEC (12.0-15.0) INR 1.17 H (0.83-1.16) APTT 32.8 SEC SEC (23.0-38.0) VBG Lactic Acid 4.3 mmol/L H mmol/L (0.7-2.1) Sodium 139 mEq/L mEq/L (135-145) Potassium 5.1 mEq/L mEq/L (3.5-5.2) Chloride 105 mEq/L mEq/L (97-110) Carbon Dioxide 18 mEq/l L mEq/l (22-31) Anion Gap 16 mEq/L H mEq/L (6-14) BUN 47 mg/dL H mg/dL (7-23) Creatinine 2.1 mg/dL H mg/dL (0.7-1.3) Estimated GFR 31 Glucose 171 mg/dL H mg/dL (70-100) Calcium 9.3 mg/dL mg/dL (8.5-10.4) Total Bilirubin 1.0 mg/dL mg/dL (0.1-1.4) 09/10/18 09/10/18 14:50 14:50 WBC 4.34 10^3/uL 10^3/uL (3.80-9.50) RBC 4.14 10^6/uL L 10^6/uL (4.40-6.38) Hgb 13.0 g/dL L g/dL (13.7-17.5) Hct 40.0 % % (40.0-51.0) MCV 96.6 fL fL (81.5-99.8) MCH 31.4 pg pg (27.9-34.1) MCHC 32.5 g/dL g/dL (32.4-36.7) RDW 14.6 % % (11.5-15.2) Plt Count 131 10^3/uL L 10^3/uL (150-400) MPV 11.1 fL fL (8.7-11.7) Neut % (Auto) QUALITY CONTROL HEAD Lymph % (Auto) QUALITY CONTROL HEAD [place]ima % (Auto) QUALITY CONTROL HEAD Eos % (Auto) QUALITY CONTROL HEAD Baso % (Auto) QUALITY CONTROL HEAD Nucleat RBC Rel Count QUALITY CONTROL HEAD Absolute Neuts (auto) QUALITY CONTROL HEAD Absolute Lymphs (auto) QUALITY CONTROL HEAD Absolute Monos (auto) QUALITY CONTROL HEAD Absolute Eos (auto) QUALITY CONTROL HEAD Absolute Basos (auto) QUALITY CONTROL HEAD Absolute Nucleated RBC QUALITY CONTROL HEAD Immature Gran % QUALITY CONTROL HEAD Seg Neutrophils % 78.0 % % Band Neutrophils % 5.0 % % Lymphocytes % 10.0 % % Monocytes % 5.0 % % Eosinophils % 0.0 % % Basophils % 0.0 % % Metamyelocytes % 2.0 % % Myelocytes % 0.0 % % Promyelocytes % 0.0 % % Blast Cells % 0.0 % % Immature Gran # QUALITY CONTROL HEAD Absolute Seg Neuts 3.39 10^3/uL 10^3/uL (1.70-6.50) Absolute Band Neuts 0.22 10^3/uL 10^3/uL (0.00-0.70) Absolute Lymphocytes 0.43 10^3/uL L 10^3/uL (1.00-3.00) Absolute Monocytes 0.22 10^3/uL L 10^3/uL (0.30-0.80) Absolute Eosinophils 0.00 10^3/uL L 10^3/uL (0.03-0.40) Absolute Basophils 0.00 10^3/uL L 10^3/uL (0.02-0.10) Absolute Metamyelocyte 0.09 10^3/mL H 10^3/mL (0.00-0.00) Absolute Myelocytes 0.00 10^3/mL 10^3/mL (0.00-0.00) Absolute Promyelocytes 0.00 10^3/uL 10^3/uL (0.00-0.00) Absolute Plasma Cells 0.00 10^3/uL 10^3/uL (0.00-0.00) Nucleated RBCs 2.0 /100 WBC H /100 WBC (0-0) Absolute Blast Cells 0.00 10^3/uL 10^3/uL (0.00-0.00) Plasma Cells % 0.0 % % Platelet Estimate DECREASED L (ADEQ) Polychromasia 1+ H PT INR APTT VBG Lactic Acid 3.9 mmol/L H mmol/L (0.7-2.1) Sodium Potassium Chloride Carbon Dioxide Anion Gap BUN Creatinine Estimated GFR Glucose Calcium Total Bilirubin Medications Given: Discontinued Medications Sodium Chloride (Ns) 4,400 mls @ 8,800 mls/hr 30 ml/kg infuse over 30 min ( 4400 ml) IV EDNOW ONE PRN Reason: Protocol Stop: 09/10/18 15:12 Last Admin: 09/10/18 14:55 Dose: Not Given Lactated Ringer's (Lr) 2,000 mls @ 4,000 mls/hr 30 ml/kg infuse over 30 min ( 2000 ml) IV EDNOW ONE PRN Reason: Protocol Stop: 09/10/18 15:18 Last Admin: 09/10/18 14:57 Dose: 2,000 mls Levofloxacin/Dextrose (Levaquin 750 Mg (Premix)) 150 mls @ 100 mls/hr IV EDNOW ONE PRN Reason: Protocol Stop: 09/10/18 16:20 Last Admin: 09/10/18 15:00 Dose: 150 mls Oseltamivir Phosphate (Tamiflu) 75 mg PO EDNOW ONE Stop: 09/10/18 14:52 Last Admin: 09/10/18 15:00 Dose: 75 mg Departure - Departure Disposition: [facility] Inpatient Acute Clinical Impression: Influenza, Septic shock Pneumonia Qualifiers: Pneumonia type: due to unspecified organism Laterality: bilateral Lung location : lower lobe of lung Qualified Code(s): J18.1 - Lobar pneumonia, unspecified organism Condition: Serious
[2018-09-10] MEDS ORDERED: LR 2,000 ML IV ONE (14:49)
[2018-09-10] MEDS ORDERED: OSELTAMIVIR PHOSPHATE 75 MG CAP PO ONE (14:51)
[2018-09-10 15:12] LABS: PLATELET COUNT 131 10^3/uL (150-400)
[2018-09-10 15:18] LABS: INR 1.17 (0.83-1.16); PROTIME(PATIENT) 15.1 SEC (12.0-15.0)
[2018-09-10] MEDS ORDERED: D50W 25 GM/50 ML SYR IVP PRN (16:51)
[2018-09-10] MEDS ORDERED: ALBUTEROL 3 ML DEYVIAL IH PRN (17:00)
[2018-09-10] MEDS ORDERED: NS 1,000 ML IV SCH (17:00)
[2018-09-10] MEDS: OSELTAMIVIR PHOSPHATE 75 MG CAP PO SCH ×2 (17:38→18:35)
--- NOTE | 2018-09-10 17:40 | GHP ---
[f rep st] HISTORY AND PHYSICAL DATE OF ADMISSION: 09/10/2018 CHIEF COMPLAINT: Fevers, body aches, and diarrhea. HISTORY OF PRESENT ILLNESS: This is a 73-year-old insulin-dependent type 2 diabetic, who developed a subjective fever, body aches, and diarrhea on Sunday. Since onset of symptoms, his appetite has b een very poor. He has not been taking much in. His sugars have been in the 200s. His diarrhea has since stopped. He does report having a flu shot this year. PAST MEDICAL HISTORY: 1. Insulin-dependent type 2 diabetes mellitus. 2. Hospitalization in January 2018 for subdural hematoma. 3. History of bladder cancer. PAST SURGICAL HISTORY: 1. Bladder tumor removal. 2. Evacuation of a subdural hematoma. HOME MEDICATIONS: Reviewed. Refer to [facility] for details. ALLERGIES: Penicillin. SOCIAL HISTORY: He lives in [place]. He denies any alcohol, tobacco, or illicit drug use. FAMILY HISTORY: Reviewed and noncontributory. REVIEW OF SYSTEMS: Comprehensive 10-point review of systems was done and was negative, except as men tioned in the HPI. PHYSICAL EXAM: VITAL SIGNS: Blood pressure 131/70, pulse 100, respiratory rate 16, and O2 saturatio n 99% on 2 L; it was 82% on room air on initial presentation with a heart rate of 121. GENERAL: Ill appearing. HEAD: Normocephalic, atraumatic. EYES: PERRLA. Sclerae anicteric. MOUTH: Dry oral mucosa. NECK: Supple. No lymphadenopathy. CARDIOVASCULAR: S1 and S2. Tachycardic. No JVD. No lower extremity edema. PULMONARY: Bilateral rhonchi. Slight increased respiratory effort. There i s a nonproductive cough. ABDOMEN: Soft, nontender, and nondistended. No guarding or rebound tender ness. Normoactive bowel sounds. EXTREMITIES: No clubbing or cyanosis. NEUROLOGICAL: Cranial nerv es 2 through 12 grossly intact. No focal motor or sensory deficits. The patient does seem to be ary ewhat confused and disoriented, thinks he lives in [place], and was corrected by his . DIAGNOSTICS: WBC is 4.3, hemoglobin 13, hematocrit 40, and platelets 131. PT 15.1 and INR 1.17. Ve nous lactic acid initial was 3.9, repeat of being 4.3. Sodium 139, potassium 5.1, chloride 105, CO2 of 18, BUN 47, creatinine 2.1, and glucose 171. Anion gap is 16. The patient was positive for influ tigist A per ER report. Chest x-ray, which I visualized and personally interpreted, shows bibasilar pn eumonia. ASSESSMENT: This is a 73-year-old insulin-dependent diabetic male presenting with: 1. Severe sepsis. 2. Influenza A and possible superimposed bacterial pneumonia. 3. Anion gap metabolic acidosis, most likely due to lactic acidosis due to above. 4. Reactive hyperglycemia due to acute infection. 5. Acute kidney injury, likely from dehydration. PLAN: 1. Admit to step-down unit. 2. Start Tamiflu and levofloxacin for treatment of influenza A and empiric treatment of community-ac quired pneumonia. We will consider broadening his antibiotics to cover for MRSA if his condition det eriorates. We will also order a procalcitonin and repeat lactic acid in 4 hours. 3. Start IV fluids and monitor renal function. 4. Monitor blood sugars and treat with correctional insulin as indicated. 5. We will hold home dose of losartan given EDELMIRA. 6. The patient requests to be full code status. /[id number]/MODL
[2018-09-10] MEDS: INSULIN LISPRO 100 UNIT/ML SC SCH (18:29)
[2018-09-10] MEDS: INSULIN GLARGINE 100 UNITS/ML UNIT SC SCH (18:41)
[2018-09-10] MEDS: ACETAMINOPHEN 500 MG TAB PO SCH (20:04)
[2018-09-10] MEDS: ATORVASTATIN CALCIUM 20 MG TAB PO SCH (20:04)
[2018-09-10] MEDS: guaiFENesin 600 MG TAB.ER PO SCH (20:04)
[2018-09-10] MEDS: DIVALPROEX NA 500 MG TAB PO SCH (20:04)
[2018-09-11] MEDS: ACETAMINOPHEN 500 MG TAB PO SCH ×3 (05:24→20:18)
[2018-09-11 05:53] LABS: PLATELET COUNT 102 10^3/uL (150-400)
--- NOTE | 2018-09-11 08:19 | HOSPPROG ---
Hospitalist Progress Note Assessment/Plan: Septic shock 2/2 Influenza plus PNA - PCT 7, lactate >4 on arrival, now normal. Febrile overnight, still tachypneic, BP's stable, no pressors. -cont tamiflu, levaquin -BCx's pending -send sputum culture -cont nebs, RT support DM type 2 - bg's 100's, MTF held with elevated Cr -cont basal / bolus insulin EDELMIRA - likely pre-renal in setting of sepsis. 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 Still weak. Not coughing much. No CP or SOB. Objective: Vital Signs Temp Pulse Resp BP Pulse Ox 36.7 C 77 23 H 108/61 92 09/11/18 08:00 09/11/18 08:00 09/11/18 08:00 09/11/18 08:00 09/11/18 08:00 Laboratory Results 09/11/18 05:23 09/11/18 05:23 09/10/18 09/11/18 09/12/18 05:59 05:59 05:59 Intake Total 1366.1 Output Total 250 Balance 1116.1 PT 15.1 SEC (12.0-15.0) H 09/10/18 14:50 INR 1.17 (0.83-1.16) H 09/10/18 14:50 - Physical Exam Constitutional: no apparent distress Eyes: PERRL Ears, Nose, Mouth, Throat: moist mucous membranes Cardiovascular: regular rate and rhythym Respiratory: no respiratory distress, inspiratory crackles Gastrointestinal: normoactive bowel sounds, soft, non-tender abdomen Skin: warm Musculoskeletal: full muscle strength Neurologic: AAOx3 Psychiatric: interacting appropriately ICD10 Worksheet Patient Problems: Problems Problem Status Onset Influenza Acute Pneumonia Acute Septic shock Acute Subdural hemorrhage Acute Syncope Acute
[2018-09-11] MEDS: VITAMIN B COMPLEX 1 EA CAP/TAB PO SCH (08:26)
[2018-09-11] MEDS: guaiFENesin 600 MG TAB.ER PO SCH ×2 (08:26→20:18)
[2018-09-11] MEDS: DIVALPROEX NA 500 MG TAB PO SCH ×2 (08:26→20:18)
[2018-09-11] MEDS: ENOXAPARIN 40 MG/0.4 ML SYR SC SCH (08:40)
[2018-09-11] MEDS: OSELTAMIVIR 6 MG/ML UDSYR PO SCH ×2 (08:40→18:19)
[2018-09-11] MEDS: INSULIN LISPRO 100 UNIT/ML SC SCH ×3 (08:40→18:18)
--- NOTE | 2018-09-11 08:56 | ASMTCMCOM ---
CM Note CM Note Notes: Pt is a 73 yo M. Presents with pnemonia and influenza. Has history of diabetes. Pt lives with his Liz in [place]. Pending PT/OT jackson. CM to follow. Plan: TBD Date Signed: 09/11/2018 08:56 AM Electronically Signed By:CINDY Blanco
[2018-09-11] MEDS: ALBUTEROL 3 ML DEYVIAL IH SCH ×3 (11:06→21:04)
--- NOTE | 2018-09-11 12:25 | PDMN ---
Medical Necessity Medical necessity: Pt meets inpt criteria per MD order and MCG M-160, Sepsis and Other Febrile Illness, without Focal Infection, A-3 days. 73 y/o w/IDDM admitted w/influenz A and possible superimposed bacterial pna, severe sepsis ( tachy, lactate>4), metabolic acidosis, reactive hyperglycemia, and EDELMIRA, likely from dehydration. Pt was 82 % on RA upon admission, 2-3 L suppl O2 has progressed to needing 10L via Oxymask, tachypneic today, WBC's decreased at 2.34. SDU care, anticipate>2MN for ongoing treatment of above.
--- NOTE | 2018-09-11 14:18 | GCON ---
[f rep st] CONSULTATION PULMONARY CRITICAL CARE CONSULTATION DATE OF CONSULTATION: 09/11/2018 REASON FOR CONSULTATION: Bronchopneumonia. HISTORY: The patient is a very pleasant 73-year-old gentleman who was admitted yesterday with cough, fever, shortness of breath, body aches, and diarrhea. He was found to be positive for influenza on admission. He was septic by criteria but without hypotension. Initial lactate was 4. He was also f ound to be volume depleted with evidence of acute renal failure and a metabolic acidosis. Chest x-ra y showed increased markings and an area of consolidation primarily in the left lower lobe. He was st arted on Tamiflu and Levaquin, albuterol, given significant fluids, and admitted to the intensive car e unit on step-down. He does have a history of type 2 diabetes, on insulin. There is a history of a subdural hematoma for which he was hospitalized here in 2018. PAST MEDICAL HISTORY: Remarkable for insulin-dependent type 2 diabetes, history of bladder cancer, s ubdural hematoma in 2018 requiring evacuation, systemic hypertension, hyperlipidemia, and a history o f seizures. MEDICATIONS ON ADMISSION: Metformin, Depakote, losartan, Levemir insulin, iron, Lipitor, and Tylenol . SOCIAL HISTORY: The patient is . 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 He did smok e cigarettes from the age of [age], 1 pack per day. There is no history of COPD. Significant alcoho l is negative. FAMILY HISTORY: Noncontributory. REVIEW OF SYSTEMS: A 10-point review of systems is negative except as mentioned above. His has just developed a febrile illness with respiratory symptoms and has been started on Tamiflu as an out patient. PHYSICAL EXAMINATION: GENERAL: Reveals a pleasant gentleman who is sitting up in the bed. Oxygen i s in place by OxyMask. Saturations are in the low 90s. Blood pressure is 139/67, heart rate 85 with sinus rhythm on the monitor. He is afebrile. HEENT: Unremarkable for lymphadenopathy or thyromega ly. There is no jugular venous distention. PULMONARY: The chest reveals decreased breath sounds an d air movement. With deep breaths, he will cough. There are some scattered rales, scattered wheezes and a few central rhonchi. There are consolidative changes at the posterior left base. HEART: Reg ular in rate and rhythm. There was a soft systolic murmur, no gallop. ABDOMEN: Soft, nontender. B owel sounds are present but diminished. EXTREMITIES: Without significant edema, cords, or tendernes s. NEUROLOGIC: Intact. DATA BASE: Chest x-ray is as noted above. LABORATORY: White blood cell count is 2300, hematocrit 30.1, platelets 102,000. All these parameter s have dropped somewhat since admission. There is a shift to the left. PT and PTT were normal on ad mission. Blood lactate this morning is 1.3, down from a maximum of 4.3. Sodium is 136, potassium 4. 4, BUN 45 with creatinine at 1.7, down from 2.1 on admission. Glucose is 182. BNP is 1230. Valproi c acid level on admission was therapeutic at 62.7. ASSESSMENT: 1. Influenza bronchopneumonia. This is associated with pulmonary congestion and hypoxemia. He is o n Tamiflu. 2. Possible superimposed bronchial pneumonia. This cannot be excluded. He does have a more dense l eft lower lobe infiltrate. He is being treated with levofloxacin. He is also on as needed albuterol and b.i.d. Mucinex. He remains hypoxemic, on high-flow oxygen to maintain saturations in the low 90 s. 3. Insulin-dependent diabetes. He is on insulin by sliding scale as well as long-acting insulin. M etformin is being held. 4. History of hypertension. Outpatient blood pressure medications are on hold. Blood pressures hav e been somewhat borderline, but seem to be improving. 5. Pancytopenia. Secondary to viral infection. CBC will be followed. 6. Metabolic: No significant issues identified other than his hyperglycemia. 7. Acute renal failure. This appears to be improving with fluid resuscitation. Creatinine is now d own to 1.7, BUN 45. Fluids will be continued. Renal function will be followed. 8. Prophylaxis: He is on enoxaparin. Gastrointestinal prophylaxis is not required as he is eating. PLAN AND RECOMMENDATIONS: The patient will be kept in the intensive care unit on step-down. Albuter ol will be increased to q.i.d. routinely. Mucolytics will be continued. Tamiflu and levofloxacin wi ll both be continued. The latter has been adjusted for his renal function. This can be switched to p.o. Enoxaparin will be continued. Glucoses will be followed and treated appropriately with sliding scale insulin. Chest x-ray and laboratory will be followed. Further plans and recommendations will be made based on his progress over the next 12-24 hours. All of the above was discussed with the patient, Nursing, Respiratory, and the ICU Multidisciplinary Team. /[id number]/MODL
[2018-09-11] MEDS: INSULIN GLARGINE 100 UNITS/ML UNIT SC SCH (19:15)
[2018-09-11] MEDS: ATORVASTATIN CALCIUM 20 MG TAB PO SCH (20:18)
[2018-09-12] MEDS: ACETAMINOPHEN 500 MG TAB PO SCH ×2 (05:05→14:10)
[2018-09-12] MEDS: ALBUTEROL 3 ML DEYVIAL IH SCH ×4 (05:10→20:56)
[2018-09-12 06:06] LABS: PLATELET COUNT 102 10^3/uL (150-400)
[2018-09-12] MEDS: INSULIN LISPRO 100 UNIT/ML SC SCH ×3 (07:56→17:39)
[2018-09-12] MEDS: OSELTAMIVIR 6 MG/ML UDSYR PO SCH ×2 (07:57→17:39)
[2018-09-12] MEDS: VITAMIN B COMPLEX 1 EA CAP/TAB PO SCH (07:57)
[2018-09-12] MEDS: guaiFENesin 600 MG TAB.ER PO SCH ×2 (07:57→21:09)
[2018-09-12] MEDS: DIVALPROEX NA 500 MG TAB PO SCH ×2 (07:58→21:09)
[2018-09-12] MEDS: ENOXAPARIN 40 MG/0.4 ML SYR SC SCH ×2 (07:59→08:01)
--- NOTE | 2018-09-12 09:45 | HOSPPROG ---
Hospitalist Progress Note Assessment/Plan: Septic shock 2/2 Influenza plus PNA - PCT 7, lactate >4 on arrival, now normal. Afebrile 36 hrs, BP's stable, no pressors. -cont tamiflu, levaquin -cont nebs, RT support Hypoxemia - 2/2 above, O2 requirement 10 LPM --> 3 LPM, much improved -wean O2 as able DM type 2 - bg's 100's, MTF held with elevated Cr -cont basal / bolus insulin EDELMIRA - likely pre-renal in setting of sepsis. 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 No fevers overnight. Less coughing, got some sleep. No CP or SOB. Taking po fairly well. Objective: Vital Signs Temp Pulse Resp BP Pulse Ox 36.6 C 75 26 H 106/52 L 92 09/12/18 07:29 09/12/18 07:29 09/12/18 07:29 09/12/18 07:29 09/12/18 07:29 Laboratory Results 09/12/18 05:37 09/12/18 05:37 09/11/18 09/12/18 09/13/18 05:59 05:59 05:59 Intake Total 1366.1 1550 Output Total 250 1480 Balance 1116.1 70 PT 15.1 SEC (12.0-15.0) H 09/10/18 14:50 INR 1.17 (0.83-1.16) H 09/10/18 14:50 - Physical Exam Constitutional: no apparent distress Eyes: PERRL Ears, Nose, Mouth, Throat: moist mucous membranes Cardiovascular: regular rate and rhythym Respiratory: no respiratory distress, other (mild bibasilar crackles) Gastrointestinal: normoactive bowel sounds, soft, non-tender abdomen Skin: warm Musculoskeletal: full muscle strength Neurologic: AAOx3 Psychiatric: interacting appropriately ICD10 Worksheet Patient Problems: Problems Problem Status Onset Influenza Acute Pneumonia Acute Septic shock Acute Subdural hemorrhage Acute Syncope Acute
--- NOTE | 2018-09-12 13:21 | PDINTPN ---
Programming Intern Progress Note Assessment/Plan: Assessment: Influenza bronchopneumonia associated with hypoxemia, cough and pulmonary congestion. On Tamiflu. On bronchodilator therapies, oxygen. Possible bacterial did pneumonia superimposed. He has a more consolidative infiltrate left lower lobe on x-ray. On Levaquin. Insulin-dependent diabetes: On sliding scale insulin as well as long-acting. Acute renal failure: Secondary to sepsis and volume depletion secondary to infection and poor oral intake for several days prior to admission. Creatinine improved: 1.4 today. Good urine output. Follow. Metabolic: No issues identified Prophylaxis: On Lovenox, eating. Plan: Continue Tamiflu. Continue Levaquin, contains 2 p.o.. Continue bronchopulmonary therapies and oxygen as needed. Follow chest x-ray in a.m.. Continue sliding scale insulin coverage. Follow renal function. Anticipate another 24-48 hours in the hospital prior to discharge. He can be transferred to a medical-surgical bed later today. 30 min of critical care time spent directly with the patient. Discussed with the patient and his , hospitalist, and the ICU multi disciplinary team. Subjective: Feels better today. Less cough, less shortness of breath, less fatigue and systemic symptoms Objective: Vital Signs Temp Pulse Resp BP Pulse Ox 36.6 C 76 18 106/52 L 94 09/12/18 07:29 09/12/18 11:24 09/12/18 11:24 09/12/18 07:29 09/12/18 11:24 Laboratory Results 09/12/18 05:37 09/12/18 05:37 09/11/18 09/12/18 09/13/18 05:59 05:59 05:59 Intake Total 1366.1 1550 Output Total 250 1480 Balance 1116.1 70 PT 15.1 SEC (12.0-15.0) H 09/10/18 14:50 INR 1.17 (0.83-1.16) H 09/10/18 14:50 Physical Exam - Physical Exam General Appearance: alert, no apparent distress, thin, other (In bed) EENT: PERRL/EOMI, other (Nasal cannula in place at 2-3 L) Neck: normal inspection (No JVD) Respiratory: lungs clear (Anteriorly), decreased breath sounds (At bases), rales (Few rales, no consolidation), rhonchi (Few rhonchi and central congestion with cough), No wheezing Cardiac/Chest: regular rate, rhythm, No gallop Abdomen: normal bowel sounds, non-tender, soft Male Genitalia: other (Using urinal) Skin: warm/dry, pallor Extremities: No pedal edema Neuro/Psych: no motor/sensory deficits, No cognition abnormalities ICD10 Worksheet Patient Problems: Problems Problem Status Onset Subdural hemorrhage Acute Syncope Acute Influenza Acute Pneumonia Acute Septic shock Acute
[2018-09-12] MEDS ORDERED: ACETAMINOPHEN 325 MG TAB PO PRN (18:07)
[2018-09-12] MEDS: INSULIN GLARGINE 100 UNITS/ML UNIT SC SCH (19:41)
[2018-09-12] MEDS: ATORVASTATIN CALCIUM 20 MG TAB PO SCH (21:09)
[2018-09-13] MEDS ORDERED: LACTULOSE 20 GM/30 ML UDCUP PO PRN (04:13)
[2018-09-13] MEDS ORDERED: MAGNESIUM HYDROXIDE 30 ML UDCUP PO PRN (04:13)
[2018-09-13] MEDS ORDERED: POLYETHYLENE GLYCOL 3350 17 GM PKT PO PRN (04:13)
[2018-09-13] MEDS ORDERED: BISACODYL 10 MG SUPP PR PRN (04:13)
[2018-09-13 05:56] LABS: PLATELET COUNT 113 10^3/uL (150-400)
[2018-09-13] MEDS: ALBUTEROL 3 ML DEYVIAL IH SCH ×4 (05:56→22:04)
[2018-09-13] MEDS: DIVALPROEX NA 500 MG TAB PO SCH ×2 (07:38→22:21)
[2018-09-13] MEDS: SENNOSIDES/DOCUSATE SODIUM TAB PO SCH ×2 (07:40→22:22)
[2018-09-13] MEDS: guaiFENesin 600 MG TAB.ER PO SCH ×2 (07:41→22:22)
[2018-09-13] MEDS: OSELTAMIVIR 6 MG/ML UDSYR PO SCH ×2 (07:42→18:31)
[2018-09-13] MEDS: VITAMIN B COMPLEX 1 EA CAP/TAB PO SCH (07:42)
[2018-09-13] MEDS: ENOXAPARIN 40 MG/0.4 ML SYR SC SCH (09:39)
[2018-09-13] MEDS: INSULIN LISPRO 100 UNIT/ML SC SCH ×3 (09:40→17:44)
--- NOTE | 2018-09-13 09:51 | HOSPPROG ---
Hospitalist Progress Note Assessment/Plan: Septic shock 2/2 Influenza plus PNA - PCT 7, lactate >4 on arrival, now normal. Afebrile 36 hrs, BP's stable, no pressors. Rpt CXR pers reviewed/interp, slight improvement. Discussed with Dr. Mcintosh. -cont tamiflu, levaquin -cont nebs, RT support Hypoxemia - 2/2 above, O2 requirement 10 LPM --> 2 LPM, much improved -wean O2 as able DM type 2 - bg's 100's, MTF held with elevated Cr -cont basal / bolus insulin EDELMIRA - likely pre-renal in setting of sepsis. 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 Awoke with low grade temp of 100. Still has wet cough, minimally productive. No CP or SOB. Taking po well. Objective: Vital Signs Temp Pulse Resp BP Pulse Ox 36.7 C 79 22 H 127/63 H 86 L 09/13/18 07:36 09/13/18 07:36 09/13/18 07:36 09/13/18 07:36 09/13/18 07:36 Laboratory Results 09/13/18 05:45 09/13/18 05:45 09/12/18 09/13/18 09/14/18 05:59 05:59 05:59 Intake Total 1550 250 Output Total 1480 200 Balance 70 50 PT 15.1 SEC (12.0-15.0) H 09/10/18 14:50 INR 1.17 (0.83-1.16) H 09/10/18 14:50 - Physical Exam Constitutional: no apparent distress Eyes: PERRL Ears, Nose, Mouth, Throat: moist mucous membranes Cardiovascular: regular rate and rhythym, no murmur, rub, or gallop Respiratory: no respiratory distress, inspiratory crackles Gastrointestinal: normoactive bowel sounds, soft, non-tender abdomen Skin: warm Musculoskeletal: full muscle strength Neurologic: AAOx3 Psychiatric: interacting appropriately ICD10 Worksheet Patient Problems: Problems Problem Status Onset Influenza Acute Pneumonia Acute Septic shock Acute Subdural hemorrhage Acute Syncope Acute
--- NOTE | 2018-09-13 12:10 | ASMTCMCOM ---
CM Note CM Note Notes: Patient had a rough night with wet cough and low grade fever.He will need more time to recover. PT is recommending home and/or home care. OT states patient has no needs.Spoke with the patient and he states [facility] has an outpatient PT that he prefers t go to. Discharge plan is home independent. CM available if new d/c needs arise. Date Signed: 09/13/2018 12:09 PM Electronically Signed By:Lauryn Abdul LCSW
--- NOTE | 2018-09-13 14:58 | PDINTPN ---
Transplant Worker Progress Note Assessment/Plan: Assessment: Influenza bronchopneumonia associated with hypoxemia, cough and pulmonary congestion. On Tamiflu. On bronchodilator therapies, oxygen. Possible bacterial pneumonia superimposed. He has a more consolidative infiltrate left lower lobe on x-ray: Improving. On Levaquin. Insulin-dependent diabetes: On sliding scale insulin as well as long-acting. Acute renal failure: Secondary to sepsis and volume depletion secondary to infection and poor oral intake for several days prior to admission. Creatinine improved: 1.2 today. Good urine output. Follow. Metabolic: No issues identified Prophylaxis: On Lovenox, eating. Plan: Continue present care. Continue Tamiflu. Continue Levaquin orally. Continue bronchopulmonary therapies and oxygen as needed. Follow chest x-ray for resolution prior to discharge or as an outpatient. Continue sliding scale insulin coverage. Follow renal function. Increase mobilization as tolerated. Subjective: Slept well after 1:00 a.m.. Feels a little bit better. Less short of breath, less cough. Oxygen remains in place. Starting to bring up a small amount of yellow mucus. Objective: Vital Signs Temp Pulse Resp BP Pulse Ox 36.7 C 78 17 127/63 H 92 09/13/18 07:36 09/13/18 10:45 09/13/18 10:45 09/13/18 07:36 09/13/18 10:45 Laboratory Results 09/13/18 05:45 09/13/18 05:45 09/12/18 09/13/18 09/14/18 05:59 05:59 05:59 Intake Total 1550 250 Output Total 1480 200 Balance 70 50 PT 15.1 SEC (12.0-15.0) H 09/10/18 14:50 INR 1.17 (0.83-1.16) H 09/10/18 14:50 CXR: Improving basilar infiltrates left greater than right. Small effusions present Physical Exam - Physical Exam General Appearance: alert, no apparent distress, thin EENT: other (Nasal cannula in place at 2 L) Neck: normal inspection (No JVD) Respiratory: lungs clear, decreased breath sounds, rales (Minimal residual rales present.), wheezing (Few wheezes present likely secondary to mucus. No diffuse wheezing.), No rhonchi (Some central congestion with cough, no sejal rhonchi) Cardiac/Chest: regular rate, rhythm, No gallop Abdomen: normal bowel sounds, non-tender, soft Skin: normal color, warm/dry Extremities: No pedal edema Neuro/Psych: no motor/sensory deficits, No cognition abnormalities ICD10 Worksheet Patient Problems: Problems Problem Status Onset Subdural hemorrhage Acute Syncope Acute Influenza Acute Pneumonia Acute Septic shock Acute
[2018-09-13] MEDS: INSULIN GLARGINE 100 UNITS/ML UNIT SC SCH (19:55)
[2018-09-13] MEDS: ATORVASTATIN CALCIUM 20 MG TAB PO SCH (22:22)
[2018-09-14] MEDS: ALBUTEROL 3 ML DEYVIAL IH SCH ×2 (05:29→11:48)
[2018-09-14 06:41] LABS: PLATELET COUNT 134 10^3/uL (150-400)
[2018-09-14 07:16] VITALS: BP 132/64
[2018-09-14] MEDS: VITAMIN B COMPLEX 1 EA CAP/TAB PO SCH (07:30)
[2018-09-14] MEDS: SENNOSIDES/DOCUSATE SODIUM TAB PO SCH (07:31)
[2018-09-14] MEDS: guaiFENesin 600 MG TAB.ER PO SCH (07:31)
[2018-09-14] MEDS: DIVALPROEX NA 500 MG TAB PO SCH (07:31)
[2018-09-14] MEDS: OSELTAMIVIR 6 MG/ML UDSYR PO SCH (07:32)
[2018-09-14] MEDS: ENOXAPARIN 40 MG/0.4 ML SYR SC SCH (09:08)
[2018-09-14] MEDS: INSULIN LISPRO 100 UNIT/ML SC SCH (09:08)
--- NOTE | 2018-09-14 10:31 | PDHOMEO2F ---
Home Oxygen Face to Face Home Orders: I certify that a physician or a nurse practitioner or physician's assistant merchandiser has had a [id number] encounter with this patient on the date of this order due to the diagnosis listed, which relates to the primary reason the patient requires home oxygen. Alternative treatments have been tried, or considered, and deemed ineffective. It is anticipated that supplemental oxygen will result in improvement with treatment. Home oxygen qualifying diagnosis: Influenza, pneumonia SpO2 on room air (%): 82 Frequency of home oxygen needed: continuous Home oxygen liters per minute: 2-3 Home oxygen delivery device: nasal cannula Concentrator: Yes E-tanks for mobility and back up: Yes If ordering portable O2, is the patient mobile in the home?: Yes I certify that, based on these findings, the home oxygen is medically necessary for this patient for the following length of time. Length of time home oxygen needed: 1 month
--- NOTE | 2018-09-14 11:02 | PDHOMEO2F ---
Home Oxygen Face to Face Home Orders: I certify that a physician or a nurse practitioner or physician's cosmetic sales assistant has had a [id number] encounter with this patient on the date of this order due to the diagnosis listed, which relates to the primary reason the patient requires home oxygen. Alternative treatments have been tried, or considered, and deemed ineffective. It is anticipated that supplemental oxygen will result in improvement with treatment. Home oxygen qualifying diagnosis: COPD, interstitial lung disease SpO2 on room air (%): 82 Frequency of home oxygen needed: continuous Home oxygen liters per minute: 2-3 Home oxygen delivery device: nasal cannula Concentrator: Yes E-tanks for mobility and back up: Yes If ordering portable O2, is the patient mobile in the home?: Yes I certify that, based on these findings, the home oxygen is medically necessary for this patient for the following length of time. Length of time home oxygen needed: 1 month
--- NOTE | 2018-09-14 11:53 | PDINTPN ---
Fur Stretcher Progress Note Assessment/Plan: Assessment: Influenza bronchopneumonia associated with hypoxemia, cough and pulmonary congestion. On Tamiflu. On bronchodilator therapies, oxygen. Possible bacterial pneumonia superimposed. He has a more consolidative infiltrate left lower lobe on x-ray: Improving. On Levaquin. Insulin-dependent diabetes: On sliding scale insulin as well as long-acting. Acute renal failure: Secondary to sepsis and volume depletion secondary to infection and poor oral intake for several days prior to admission. Creatinine improved: 1.2. Good urine output. Metabolic: No issues identified Prophylaxis: On Lovenox, eating. Plan: To go home on Tamiflu and Levaquin. He is being discharged on oxygen which she will pay for himself. Follow chest x-ray for resolution as an outpatient as infiltrates were persisting on follow-up chest x-ray here. I will see him back at some point in the office in 4-6 weeks. A follow-up x-ray will be done at that time. Pulmonary function studies will likely be helpful in will be ordered. It is possible that he has mild smoking-related lung disease from his smoking years ago? If he thinks he can discontinue oxygen prior to that visit he is to call and overnight oximetry on room air will be ordered. He will get his own personal pulse oximeter and can follow daytime oxygens at home. I instructed him to keep his sats 88% or above. All the above was discussed with the patient and his . Subjective: Feels better overall. Still with cough and some mucus. Still with some shortness of breath. Remains hypoxemic. Wants to go home Objective: Vital Signs Temp Pulse Resp BP Pulse Ox 37.1 C 77 15 132/64 H 91 L 09/14/18 07:14 09/14/18 07:14 09/14/18 07:14 09/14/18 07:14 09/14/18 07:14 Laboratory Results 09/14/18 06:20 09/13/18 05:45 09/13/18 09/14/18 09/15/18 05:59 05:59 05:59 Intake Total 250 200 Output Total 200 300 Balance 50 -100 PT 15.1 SEC (12.0-15.0) H 09/10/18 14:50 INR 1.17 (0.83-1.16) H 09/10/18 14:50 Physical Exam - Physical Exam General Appearance: alert, no apparent distress, thin EENT: other (On oxygen nasal cannula at 2L. 82% on room air earlier.) Neck: normal inspection (No JVD) Respiratory: lungs clear, decreased breath sounds, rales (Few scattered rales persist at the bases), prolonged expiration (Mildly prolonged expiration), No rhonchi, No wheezing Cardiac/Chest: regular rate, rhythm, No gallop Abdomen: normal bowel sounds, non-tender, soft Skin: normal color, warm/dry Extremities: No pedal edema Neuro/Psych: no motor/sensory deficits, No cognition abnormalities ICD10 Worksheet Patient Problems: Problems Problem Status Onset Subdural hemorrhage Acute Syncope Acute Influenza Acute Pneumonia Acute Septic shock Acute
--- NOTE | 2018-09-14 14:53 | ASMTLACE ---
LACE Length of stay for Answers: 4-6 days current admission Acuity / Level of Answers: Yes Care: Did the patient have an inpatient admission? Comorbidities - select Answers: Any tumor (including all that apply lymphoma or leukemia) Diabetes (uncontrolled or controlled) Other Notes: HTN; HLD # of Emergency department Answers: 1-2 visits in the last 6 months Score: 12 Date Signed: 09/14/2018 02:52 PM Electronically Signed By:Ruthy Calles RN
--- NOTE | 2018-09-14 15:01 | ASDISCHSUM ---
Discharge Information Plan Status:Home with No Needs Medically Cleared to Leave:09/13/2018 Discharge Date:09/14/2018 12:45 PM CM D/C Disposition:Home, Routine, Self-Care ADT D/C Disposition:Home, Routine, Self-Care Projected Discharge Date:09/14/2018 12:45 PM Transportation at D/C:Family Discharge Delay Reason: Follow-Up Date:09/14/2018 12:45 PM Discharge Slot:2 - 12:01 pm - 18:00 pm Final Diagnosis:Influenza bronchopneumonia, hypoxemia, possible bacterial pneumonia, IDDM, acute ruthie al failure Placement Information Patient Contact Information Contact Name:EKATERINA Relationship: Address:[address] Work Phone: [facility] Alternate Phone: [facility]/Zip Code:[place] [address] Email: Financial Information Financial Class:Medicare Advantage Plans Primary Plan Desc:ITZ MIGUEL O MEDICARE Primary Plan Number:[id number] Secondary Plan Desc: Secondary Plan Number: Assessment Information LACE LACE Length of stay for Answers: 4-6 days current admission Acuity / Level of Answers: Yes Care: Did the patient have an inpatient admission? Comorbidities - select Answers: Any tumor (including all that apply lymphoma or leukemia) Diabetes (uncontrolled or controlled) Other Notes: HTN; HLD # of Emergency department Answers: 1-2 visits in the last 6 months Score: 12 Date Signed: 09/14/2018 02:52 PM Electronically Signed By:Ruthy Calles RN [facility] Progress Note CM Jonathan CM Note Notes: Pt is a 73 yo M. Presents with pnemonia and influenza. Has history of diabetes. Pt lives with his Liz in [place]. Pending PT/OT jackson. CM to follow. Plan: TBD Date Signed: 09/11/2018 08:56 AM Electronically Signed By:CINDY Blanco [facility] CM Progress Note CM Note CM Note Notes: Patient had a rough night with wet cough and low grade fever.He will need more time to recover. PT is recommending home and/or home care. OT states patient has no needs.Spoke with the patient and he states [facility] has an outpatient PT that he prefers t go to. Discharge plan is home independent. CM available if new d/c needs arise. Date Signed: 09/13/2018 12:09 PM Electronically Signed By:Lauryn Abdul LCSW Case Management Discharge Plan Note Case Management Discharge Discharge Order Complete? Answers: Yes Patient to Obtain Answers: via Family Medications Transportation Arranged Answers: Family/Friends Transport will Pick (Date 09/14/2018 12:00 AM & Time) EMTALA Complete Answers: No Notes: N/A Case Management Transport Answers: No Notes: N/A Form Complete Faxed Final Orders Answers: No Notes: N/A Agency/Facility Transfer Answers: No Notes: N/A Report Printed & Faxed to Receiving Agency Family Notified Answers: Yes Notes: at bedside. Discharge Comments Notes: Reviewed chart, spoke with Dr. Garcia regarding discharge plan of care, pt's progress. Per Dr. Garcia, pt to discharge home independently with family support today. Pt in need of home oxygen secondary to hypoxemia. Spoke with RT. Pt set up with [facility]. Met with pt and to discuss potential discharge needs; offered home care support, pt declined. Pt denies needs. IM signed, copy placed in chart. Pt to follow up as directed. CM available for any further issues or concerns. Discharge Plan: Home independently with family support and [facility] (oxygen) Date Signed: 09/14/2018 03:00 PM Electronically Signed By:Ruthy Calles RN Intervention Information Intervention Type:*IM-Signed Date of Service:09/14/2018 02:48 PM Patient Type:Inpatient Staff Member:INES Calles Taylor Hours: Discipline: Severity: Comment:
[2018-09-14] MEDS ORDERED: OSELTAMIVIR PHOSPHATE 75 MG CAP PO SCH (18:00)
--- NOTE | 2018-09-14 18:26 | GDS ---
[f rep st] DISCHARGE SUMMARY DISCHARGE DIAGNOSES: 1. Septic shock secondary to influenza and pneumonia. 2. Community-acquired pneumonia. 3. Acute hypoxemic respiratory failure, discharging on home oxygen. 4. Type 2 diabetes mellitus. 5. Acute kidney injury, resolved. 6. Pancytopenia likely secondary to bone marrow suppression in the setting of viral illness, improvi ng. 7. Metabolic acidosis secondary to lactic acidosis, resolved. 8. Seizure disorder, stable. CONSULTANTS: Dr. Colby Mcintosh, Pulmonology. HISTORY: For details, please see the chart and dictated history and physical dated September 10, 2018. In brief, the patient is a 73-year-old male with a significant tobacco history and type 2 diabetes mellitus, who presented to the hospital with fever and myalgias. He met criteria for septic shock ba sed on tachycardia, hypoxemia, elevated creatinine, and a lactate greater than 4. However, he had no hypotension and did not require pressors. He was positive for influenza A, and a chest x-ray showed bibasilar pneumonia. He was admitted to the ICU for further management. HOSPITAL COURSE: The patient was admitted to the intensive care unit. He received appropriate fluid bolus for his septic shock. Again, he did not require pressor support. He was started on Tamiflu a nd Levaquin. He required 10 L of oxygen on arrival, though this slowly improved, and he was weaned d own to 2 L/minute at the time of discharge. Followup chest x-ray showed persistent bibasilar consoli dation, though possibly with some suggestion of slight interval improvement. Pulmonology consult was obtained. He will have outpatient followup with Dr. Colby Mcintosh for repeat chest x-ray in 4-6 week s as well as pulmonary function tests to evaluate for underlying COPD. His renal function normalized . His white blood cell count dropped as low as 1.88, although this has improved to 2.79 on the day o f discharge. His platelet count also recovered from 102 to 134. I suspect this was all bone marrow suppression in the setting of sepsis and acute viral illness. His blood sugars were well controlled throughout his hospitalization on his usual insulin. His metformin was initially held due to his acu te kidney injury. He can resume this at discharge with his creatinine normalizing to 1.2. DISPOSITION: Patient is discharged home in stable condition with home oxygen. FOLLOWUP: 1. Dr. Dayne Pimentel, primary care, to recheck his oxygen saturations, and he can wean off oxygen as able in the outpatient setting. 2. Dr. Colby Mcintosh, Pulmonology, for followup chest x-ray in 4-6 weeks, as well as pulmonary functi on tests to evaluate for underlying COPD, given his significant tobacco history. DISCHARGE MEDICATIONS: Please see [facility] completed outpatient medication list. New medications on discharge include: 1. Levaquin 750 mg p.o. daily for 2 more days. 2. Tamiflu 75 mg p.o. twice daily for 2 more days. 3. Note this was renally dosed throughout his hospitalization, but his GFR has improved to 60 at the time of discharge so his last doses will be full dose. 4. Mucinex 1200 mg p.o. twice daily #30 no refills and Tylenol 650 p.o. q.6 hours p.r.n. 5. He will continue all other outpatient medications as previously prescribed. /[id number]/MODL
== END 2018-09-14 12:45 | disposition home or self-care (01) | DRG 871 ==
LOC: F2N 17:20
PROVIDERS: ADMIT Family Medicine; ATTEND Hospitalist
DX: A41.9 Sepsis, unspecified organism (principal); A41.89 Other specified sepsis; R65.21 Severe sepsis with septic shock; J10.00 Influenza due to other identified influenza virus with unspecified type of pneumonia; J96.01 Acute respiratory failure with hypoxia; N17.9 Acute kidney failure, unspecified; E87.2 Acidosis; E11.65 Type 2 diabetes mellitus with hyperglycemia; I10 Essential (primary) hypertension; D61.818 Other pancytopenia; G40.909 Epilepsy, unspecified, not intractable, without status epilepticus; E78.5 Hyperlipidemia, unspecified; Z85.51 Personal history of malignant neoplasm of bladder; Z87.891 Personal history of nicotine dependence; Z79.84 Long term (current) use of oral hypoglycemic drugs; Z79.4 Long term (current) use of insulin
CPT/HCPCS: 96365; 97116-GP; 97161-GP; 97165-GO; 97535-GO; J1650; J1815; J1956; J7613